=== PATIENT | female | born 1940 | race Caucasian/White ===

== ENCOUNTER → 2018-12-09 | Outpatient (CLI) | payer MEDICARE ==
--- NOTE | 2018-12-10 12:01 | P.ARTDOP ---
Arterial Doppler LOWER EXTREMITY ARTERIAL DOPPLER: DATE OF SERVICE: 12/09/2018 Reason for study: Left ankle ulcer. Doppler waveforms: Multiphasic at both femoral and popliteals and atypical below. Pulse volume recording: []. Pressure gradients: Above the ankles bilaterally. Ankle-brachial indices: 0.71 on the right endpoints 87 on the left. 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 Perfusion probably adequate for healing given toe waveforms and pressures. Clinical correlation recommended..
== END | disposition home or self-care (01) ==
LOC: RADUSWWP 14:00
PROVIDERS: ATTEND Internal Medicine Infectious Disease
DX: M79.604 Pain in right leg (principal); M79.605 Pain in left leg; E63.8 Other specified nutritional deficiencies
CPT/HCPCS: 93923

== ENCOUNTER → 2018-12-11 | Outpatient (CLI) | payer MEDICARE ==
--- NOTE | 2018-12-11 14:40 | US ---
LOWER EXTREMITY VENOUS INSUFFICIENCY [facility]ound Center pt with non-healing wound left lower leg x 3 months SIDE PERFORMED: Bilateral 1) Color flow is present and patency is documented in the following vessels. No DVT or SVT is noted . EIV Common Femoral Vein Deep Femoral Vein Femoral Vein Popliteal Vein Proximal Calf Veins Greater Saph Vein Upper Small Saph Vein 2) There is venous reflux noted at the following venous levels: No reflux visualized
== END | disposition home or self-care (01) ==
LOC: RADUSWWP 13:53
PROVIDERS: ATTEND Internal Medicine Infectious Disease
DX: M79.604 Pain in right leg (principal); M79.605 Pain in left leg
CPT/HCPCS: 93970

== ENCOUNTER 2019-11-08 21:11 | Inpatient (IN) | payer MEDICARE ==
[2019-11-08] MEDS ORDERED: SODIUM CHLORIDE 0.9% 500 ML 500 ML IV ONE (21:21)
[2019-11-08] MEDS ORDERED: SODIUM CHLORIDE 0.9% 1,000 ML IV ONE ×2 (21:21→23:23)
--- NOTE | 2019-11-08 21:55 | ED ---
General Adult HPI - General Chief complaint: Recheck/Abnormal Lab/Rx Stated complaint: Poss STEMI Time Seen by Provider: 11/08/19 21:13 Source: EMS Mode of arrival: EMS Limitations: altered mental status, physical limitation - History of Present Illness Initial comments: This patient is a 79-year-old woman brought from her home by ambulance. Most of the history comes from the EMS personnel as patient does appear to have some underlying dementia and some possible delirium as well. EMS was called as the patient reportedly was weak and not getting out of bed for about the past 7 days or so. Over about the past day or so the patient also has not been very responsive at home to family members and they called ambulance. EMS personnel report that they found patient in bed which was soiled with urine and stool. Patient is only able to give 1 or 2 word answers. She is able states she is in the hospital. She is denying pain anywhere. She is denying dyspnea. Onset/Timin -: week(s) Severity scale (1-10): 0 Improves with: none Worsens with: none Associated Symptoms: denies other symptoms - Related Data Home Medications Medication Instructions Recorded Confirmed Albuterol Inhaler [Ventolin Hfa 1 - 2 puff INHALATION RT-Q6H PRN 12/02/18 11/09/19 Inhaler] Ascorbic Acid [Vitamin C] 250 mg PO BID 12/02/18 11/09/19 Aspirin 325 mg PO DAILY 12/02/18 11/09/19 Carvedilol [Coreg] 12.5 mg PO BID 12/02/18 11/09/19 Cholecalciferol [Vitamin D3] 1,000 unit PO DAILY 12/02/18 11/09/19 Ferrous Sulfate [Feosol] 325 mg PO BID 12/02/18 11/09/19 Furosemide [Lasix] 20 mg PO DAILY 12/02/18 11/09/19 Lisinopril [Prinivil] 20 mg PO BID 12/02/18 11/09/19 Multivitamins, Thera [Multivitamin 1 tab PO DAILY 12/02/18 11/09/19 (formulary)] Simvastatin [Zocor] 40 mg PO HS 12/02/18 11/09/19 Clopidogrel [Plavix] 75 mg PO DAILY 11/09/19 11/09/19 HYDROcodone/APAP 5-325MG [[place] 5 - 500 mg PO Q6HR PRN 11/09/19 11/09/19 5-325] Ibuprofen [Motrin] 600 mg PO Q6HR PRN 11/09/19 11/09/19 Allergies Allergy/AdvReac Type Severity Reaction Status Date / Time No Known Allergies Allergy Verified 12/02/18 13:08 Review of Systems ROS Statement: Those systems with pertinent positive or pertinent negative responses have been documented in the HPI. ROS Other: All systems not noted in ROS Statement are negative. Limitations: ROS unobtainable due to patients medical condition Cardiovascular: Denies: chest pain Gastrointestinal: Denies: abdominal pain Neurological: Denies: headache Past Medical History Past Medical History: Hyperlipidemia, Hypertension, Myocardial Infarction ([place]), Pneumonia Last Myocardial Infarction Date:: 02/25/2012 History of Any Multi-Drug Resistant Organisms: None Reported Past Surgical History: Heart Catheterization With Stent, Tubal Ligation Past Anesthesia/Blood Transfusion Reactions: No Reported Reaction Date of Last Stent Placement:: 02/2012 Past Psychological History: No Psychological Hx Reported Smoking Status: Former smoker - Past Family History Mother Family Medical History: Cancer, Hypertension, Thyroid Disorder Son(s) Family Medical History: Cancer General Exam Limitations: language barrier, altered mental status, physical limitation General appearance: obtunded Head exam: Present: atraumatic, normocephalic Eye exam: Present: PERRL. Absent: scleral icterus, conjunctival injection ENT exam: Present: mucous membranes dry Neck exam: Present: full ROM. Absent: tenderness, meningismus Respiratory exam: Present: rhonchi. Absent: respiratory distress, wheezes, rales Cardiovascular Exam: Present: regular rate, normal rhythm, normal heart sounds. Absent: systolic murmur, diastolic murmur, rubs, gallop GI/Abdominal exam: Present: soft. Absent: distended, tenderness, guarding, rebound Extremities exam: Present: pedal edema. Absent: normal capillary refill (Delayed refill), calf tenderness Back exam: Absent: tenderness, CVA tenderness (R), CVA tenderness (L) Neurological exam: Present: altered, CN II-XII intact. Absent: oriented X3 (Patient oriented to person and recognizes she is in the hospital could not state the date.), motor sensory deficit Skin exam: Present: dry, mottled, other (Patient has multiple excoriations to the buttocks bilaterally.) Course Vital Signs 11/08/19 11/08/19 11/08/19 21:14 22:00 22:19 Temperature 97.3 F L Pulse Rate 97 88 86 Pulse Rate [ Pulse Oximetery ] Respiratory 14 16 14 Rate Blood Pressure 122/64 88/66 108/85 Blood Pressure [Left Arm] O2 Sat by Pulse 91 L Oximetry 11/08/19 11/08/19 11/09/19 23:00 23:35 00:09 Temperature 97.4 F L Pulse Rate 84 90 86 Pulse Rate [ Pulse Oximetery ] Respiratory 14 14 15 Rate Blood Pressure 88/58 105/82 101/81 Blood Pressure [Left Arm] O2 Sat by Pulse 96 Oximetry 11/09/19 11/09/19 11/09/19 00:50 01:04 01:30 Temperature Pulse Rate 138 H 76 78 Pulse Rate [ Pulse Oximetery ] Respiratory 14 15 14 Rate Blood Pressure 122/57 103/53 90/79 Blood Pressure [Left Arm] O2 Sat by Pulse 95 94 L Oximetry 11/09/19 11/09/19 11/09/19 01:37 02:00 04:00 Temperature 97.2 F L 97.4 F L 97.3 F L Pulse Rate 79 Pulse Rate [ 70 71 Pulse Oximetery ] Respiratory 14 18 18 Rate Blood Pressure Blood Pressure 103/48 111/71 [Left Arm] O2 Sat by Pulse 93 L 96 95 Oximetry - Reevaluation(s) Reevaluation #1: 11/08/19 23:03 Patient's son arrived at the bedside as I was starting external jugular IV line. We discussed discussed the patient's case and he stated that she had expressed wishes to not have resuscitation or mechanical life support. EKG Findings - EKG Comments: EKG Findings:: Possible old lateral infarct. Possible old inferior infarct - EKG Results: EKG: interpreted by ERMD, sinus rhythm (Rate 85 bpm) - Blocks, [place], Hypertrophy, ST Abn: QRS axis and voltage: left axis deviation (-30 to -90) Medical Decision Making - Medical Decision Making Patient 79-year-old woman brought by ambulance after she became less and less responsive over the past 24 hours. Prior to that she had spent the past week for the most part lying in bed. The workup does reveal elevated troponin, and case discussed with cardiology. Given that the patient is denying chest pain and dyspnea, patient not currently indicated for [employer]. Patient initially was to be heparinized then found to have occult positive stools. Patient is also hypercalcemic and this may be due to the suspected left upper lung mass observed on chest x-ray. Fluid hydration and antibiotics started. Patient family states she would wish t o be no CODE STATUS. - Lab Data Result diagrams: 11/08/19 22:20 11/08/19 22:20 Lab Results 11/08/19 11/08/19 11/08/19 Range/Units 21:00 21:00 22:20 WBC 12.5 H (3.8-10.6) k/uL RBC 5.83 H (3.80-5.40) m/uL Hgb 16.5 H (11.4-16.0) gm/dL Hct 51.2 H (34.0-46.0) % MCV 87.8 (80.0-100.0) fL MCH 28.4 (25.0-35.0) pg MCHC 32.3 (31.0-37.0) g/dL RDW 14.8 (11.5-15.5) % Plt Count 105 L (150-450) k/uL Neutrophils % 90 % Lymphocytes % 6 % Monocytes % 3 % Eosinophils % 0 % Basophils % 0 % Neutrophils # 11.3 H (1.3-7.7) k/uL Lymphocytes # 0.7 L (1.0-4.8) k/uL Monocytes # 0.4 (0-1.0) k/uL Eosinophils # 0.0 (0-0.7) k/uL Basophils # 0.0 (0-0.2) k/uL PT (9.0-12.0) sec INR (<1.2) APTT (22.0-30.0) sec Sodium (137-145) mmol/L Potassium (3.5-5.1) mmol/L Chloride (98-107) mmol/L Carbon Dioxide (22-30) mmol/L Anion Gap mmol/L BUN (7-17) mg/dL Creatinine (0.52-1.04) mg/dL Est GFR (CKD-EPI)AfAm (>60 ml/min/1.73 sqM) Est GFR (CKD-EPI)NonAf (>60 ml/min/1.73 sqM) Glucose (74-99) mg/dL Lactic Ac Sepsis Rflx Plasma Lactic Acid Emilio (0.7-2.0) mmol/L Calcium (8.4-10.2) mg/dL Total Bilirubin (0.2-1.3) mg/dL AST (14-36) U/L ALT (4-34) U/L Alkaline Phosphatase (38-126) U/L CK-MB (CK-2) (0.0-2.4) ng/mL Troponin I (0.000-0.034) ng/mL Total Protein (6.3-8.2) g/dL Albumin (3.5-5.0) g/dL Urine Color [place] Urine Appearance Cloudy H (Clear) Urine pH 5.0 (5.0-8.0) Ur Specific Wilson 1.018 (1.001-1.035) Urine Protein 1+ H (Negative) Urine Glucose (UA) Negative (Negative) Urine Ketones Negative (Negative) Urine Blood Trace H (Negative) Urine Nitrite Negative (Negative) Urine Bilirubin 1+ H (Negative) Urine Urobilinogen 4.0 (<2.0) mg/dL Ur Leukocyte Esterase Moderate H (Negative) Urine RBC 1 (0-5) /hpf Urine WBC 8 H (0-5) /hpf Ur Squamous Epith Cells 1 (0-4) /hpf Urine Bacteria Many H (None) /hpf Hyaline Casts 62 H (0-2) /lpf Urine Mucus Many H (None) /hpf Stool Occult Blood Positive H (Negative) 11/08/19 11/08/19 11/08/19 Range/Units 22:20 22:20 22:20 WBC (3.8-10.6) k/uL RBC (3.80-5.40) m/uL Hgb (11.4-16.0) gm/dL Hct (34.0-46.0) % MCV (80.0-100.0) fL MCH (25.0-35.0) pg MCHC (31.0-37.0) g/dL RDW (11.5-15.5) % Plt Count (150-450) k/uL Neutrophils % % Lymphocytes % % Monocytes % % Eosinophils % % Basophils % % Neutrophils # (1.3-7.7) k/uL Lymphocytes # (1.0-4.8) k/uL Monocytes # (0-1.0) k/uL Eosinophils # (0-0.7) k/uL Basophils # (0-0.2) k/uL PT 10.9 (9.0-12.0) sec INR 1.1 (<1.2) APTT 26.3 (22.0-30.0) sec Sodium 139 (137-145) mmol/L Potassium 4.1 (3.5-5.1) mmol/L Chloride 109 H (98-107) mmol/L Carbon Dioxide 16 L (22-30) mmol/L Anion Gap 14 mmol/L BUN 85 H (7-17) mg/dL Creatinine 2.99 H (0.52-1.04) mg/dL Est GFR (CKD-EPI)AfAm 16 (>60 ml/min/1.73 sqM) Est GFR (CKD-EPI)NonAf 14 (>60 ml/min/1.73 sqM) Glucose 119 H (74-99) mg/dL Lactic Ac Sepsis Rflx Plasma Lactic Acid Emilio (0.7-2.0) mmol/L Calcium 13.4 H* (8.4-10.2) mg/dL Total Bilirubin 2.5 H (0.2-1.3) mg/dL AST 36 (14-36) U/L ALT 13 (4-34) U/L Alkaline Phosphatase 69 (38-126) U/L CK-MB (CK-2) 5.9 H (0.0-2.4) ng/mL Troponin I 1.630 H* (0.000-0.034) ng/mL Total Protein 6.0 L (6.3-8.2) g/dL Albumin 2.7 L (3.5-5.0) g/dL Urine Color Urine Appearance (Clear) Urine pH (5.0-8.0) Ur Specific Wilson (1.001-1.035) Urine Protein (Negative) Urine Glucose (UA) (Negative) Urine Ketones (Negative) Urine Blood (Negative) Urine Nitrite (Negative) Urine Bilirubin (Negative) Urine Urobilinogen (<2.0) mg/dL Ur Leukocyte Esterase (Negative) Urine RBC (0-5) /hpf Urine WBC (0-5) /hpf Ur Squamous Epith Cells (0-4) /hpf Urine Bacteria (None) /hpf Hyaline Casts (0-2) /lpf Urine Mucus (None) /hpf Stool Occult Blood (Negative) 11/08/19 11/08/19 Range/Units 22:20 23:19 WBC (3.8-10.6) k/uL RBC (3.80-5.40) m/uL Hgb (11.4-16.0) gm/dL Hct (34.0-46.0) % MCV (80.0-100.0) fL MCH (25.0-35.0) pg MCHC (31.0-37.0) g/dL RDW (11.5-15.5) % Plt Count (150-450) k/uL Neutrophils % % Lymphocytes % % Monocytes % % Eosinophils % % Basophils % % Neutrophils # (1.3-7.7) k/uL Lymphocytes # (1.0-4.8) k/uL Monocytes # (0-1.0) k/uL Eosinophils # (0-0.7) k/uL Basophils # (0-0.2) k/uL PT (9.0-12.0) sec INR (<1.2) APTT (22.0-30.0) sec Sodium (137-145) mmol/L Potassium (3.5-5.1) mmol/L Chloride (98-107) mmol/L Carbon Dioxide (22-30) mmol/L Anion Gap mmol/L BUN (7-17) mg/dL Creatinine (0.52-1.04) mg/dL Est GFR (CKD-EPI)AfAm (>60 ml/min/1.73 sqM) Est GFR (CKD-EPI)NonAf (>60 ml/min/1.73 sqM) Glucose (74-99) mg/dL Lactic Ac Sepsis Rflx Y Plasma Lactic Acid Emilio 3.9 H* (0.7-2.0) mmol/L Calcium (8.4-10.2) mg/dL Total Bilirubin (0.2-1.3) mg/dL AST (14-36) U/L ALT (4-34) U/L Alkaline Phosphatase (38-126) U/L CK-MB (CK-2) (0.0-2.4) ng/mL Troponin I (0.000-0.034) ng/mL Total Protein (6.3-8.2) g/dL Albumin (3.5-5.0) g/dL Urine Color Urine Appearance (Clear) Urine pH (5.0-8.0) Ur Specific Wilson (1.001-1.035) Urine Protein (Negative) Urine Glucose (UA) (Negative) Urine Ketones (Negative) Urine Blood (Negative) Urine Nitrite (Negative) Urine Bilirubin (Negative) Urine Urobilinogen (<2.0) mg/dL Ur Leukocyte Esterase (Negative) Urine RBC (0-5) /hpf Urine WBC (0-5) /hpf Ur Squamous Epith Cells (0-4) /hpf Urine Bacteria (None) /hpf Hyaline Casts (0-2) /lpf Urine Mucus (None) /hpf Stool Occult Blood (Negative) Disposition
[2019-11-08 22:19] LABS: Appearance,Urine Cloudy (Clear); Bacteria,Urine Many /hpf; Bilirubin,Urine 1+ (Negative); Blood,Urine Trace (Negative); Color,Urine Orange; Glucose,Urine (UA) Negative (Negative); Hyaline Casts,Urine 62 /lpf (0-2); Ketones,Urine Negative (Negative); Leukocyte Esterase,Urine Moderate (Negative); Mucus,Urine Many /hpf; Nitrite,Urine Negative (Negative); Protein,Urine 1+ (Negative); RBC,Urine 1 /hpf (0-5); Specific Gravity,Urine 1.018 (1.001-1.035); Squamous Epithelial Cell,Urine 1 /hpf (0-4); WBC,Urine 8 /hpf (0-5)
[2019-11-08 22:35] LABS: Basophils % (A) 0 %; Eosinophils % (A) 0 %; HCT 51.2 % (34.0-46.0); HGB 16.5 gm/dL (11.4-16.0); Lymphocytes # (A) 0.7 k/uL (1.0-4.8); Lymphocytes % (A) 6 %; MCH 28.4 pg (25.0-35.0); MCHC 32.3 g/dL (31.0-37.0); MCV 87.8 fL (80.0-100.0); Mean Platelet Volume 9.2; Monocytes # (A) 0.4 k/uL (0-1.0); Monocytes % (A) 3 %; Neutrophils # (A) 11.3 k/uL (1.3-7.7); Neutrophils % (A) 90 %; Platelet Count 105 k/uL (150-450); RBC 5.83 m/uL (3.80-5.40); RDW 14.8 % (11.5-15.5); WBC 12.5 k/uL (3.8-10.6)
[2019-11-08 22:44] LABS: INR 1.1 (<1.2); Partial Thromboplastin Time 26.3 sec (22.0-30.0); Prothrombin Time 10.9 sec (9.0-12.0)
[2019-11-08 23:01] LABS: Albumin 2.7 g/dL (3.5-5.0); Potassium 4.1 mmol/L (3.5-5.1); Total Bilirubin 2.5 mg/dL (0.2-1.3)
[2019-11-08 23:13] LABS: Creatine Kinase MB 5.9 ng/mL (0.0-2.4)
[2019-11-08 23:20] LABS: Calcium 13.4 mg/dL (8.4-10.2); Troponin I 1.63 ng/mL (0.000-0.034)
--- NOTE | 2019-11-09 00:35 | CT ---
EXAMINATION TYPE: CT brain wo con DATE OF EXAM: 11/09/2019 COMPARISON: None HISTORY: Patient presents with AMS. CT DLP: 1158.4 mGycm Automated exposure control for dose reduction was used. There is cerebral cortical atrophy. There is no mass effect nor midline shift. There is no sign of in tracranial hemorrhage. There is large white matter area of hypodensity left parietal lobe that measur es 6 x 4 cm. There is no effacement of the ventricle. The calvarium is intact. IMPRESSION: Cerebral atrophy. Large parietal white matter hypodense area more likely related to ischemia in view of the lack of any mass effect. 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 No underlying mass identified.
--- NOTE | 2019-11-09 00:47 | XR ---
EXAMINATION TYPE: XR chest 1V portable DATE OF EXAM: 11/09/2019 COMPARISON: 06/26/2012 HISTORY: Back pain TECHNIQUE: 2 views supine FINDINGS: There is extensive masslike consolidation in the left upper lobe. Heart size is normal. The re is no heart failure. There is large calcified granuloma in the left upper lobe and measures 1.3 cm . The lung bases are fairly clear. Bony thorax appears intact. IMPRESSION: Limited exam shows masslike consolidation left upper lobe. Follow-up recommended. Tumor i s possible. Density is new compared to old chest x-ray.
[2019-11-09] MEDS ORDERED: DILTIAZEM DRIP BOLUS FROM BAG 1 MG SOLN IV ONE (00:56)
[2019-11-09] MEDS ORDERED: HEPARIN SODIUM,PORCINE 5,000 UNIT/ML 1 ML VIAL IV PRN (00:56)
[2019-11-09] MEDS ORDERED: HEPARIN SODIUM,PORCINE 5,000 UNIT/ML 1 ML VIAL IV ONE (00:56)
[2019-11-09] MEDS ORDERED: ACETAMINOPHEN TAB 325 MG TAB PO PRN (00:57)
[2019-11-09] MEDS ORDERED: NALOXONE 0.4 MG/ML 1 ML VIAL IV PRN (00:57)
[2019-11-09] MEDS: HEPARIN SOD,PORK IN 0.45% NACL 25,000 UNIT in 0.45% NACL 1 250ML.BAG IV SCH ×2 (01:34→23:51)
[2019-11-09] MEDS: SODIUM CHLORIDE 0.9% 1,000 ML IV SCH ×3 (01:41→20:53)
[2019-11-09] MEDS: DILTIAZEM 125 MG in SODIUM CHLORIDE 0.9% 100 ML IV SCH ×2 (02:18→23:51)
--- NOTE | 2019-11-09 08:42 | P.CRDCN ---
History of Present Illness Consult date: 11/09/19 Requesting physician: Purvi Rausch Reason for Consult (text): Abnormal troponins Chief complaint: Weakness History of present illness: This is a 79-year-old female, history was obtained from the medical record as the patient was quite confused. She does have a history of underlying dementia and possible delirium according to the medical records. History also of hyperlipidemia, hypertension. Apparently EMS was called, patient was quite weak and had not gotten out of bed for the past 7 days or so, and was somewhat unresponsive. Patient was found in the bed which was soiled with urine and stool. The reason a cardiology consultation was requested was because of abnormality in troponin. Chest x-ray on arrival here showed a masslike consolidation in the left upper lobe, follow-up recommended. Her EKG on presentation here showed a normal sinus rhythm, right bundle branch block pattern, with nonspecific ST-T wave changes. Blood pressure 105/80 with a heart rate of 90, afebrile, 91% on room air. White blood cell count 12.5, hemoglobin 16.5, platelet count 105. Sodium 139, potassium 4.1, BUN 85, creatinine 2.9. Plasma lactic acid up to 5.1. Total bilirubin 2.5. Troponin 1.6, 1.5. Positive UTI, positive stool for occult blood. At the time of my examination this morning, patient is lying in bed, intermittently will answer with one-word. Quite unkempt,frail. Past Medical History Past Medical History: Hyperlipidemia, Hypertension, Myocardial Infarction ([place]), Pneumonia Last Myocardial Infarction Date:: 02/25/2012 History of Any Multi-Drug Resistant Organisms: None Reported Past Surgical History: Heart Catheterization With Stent, Tubal Ligation Past Anesthesia/Blood Transfusion Reactions: No Reported Reaction Date of Last Stent Placement:: 02/2012 Past Psychological History: No Psychological Hx Reported Smoking Status: Former smoker - Past Family History Mother Family Medical History: Cancer, Hypertension, Thyroid Disorder Son(s) Family Medical History: Cancer Medications and Allergies Home Medications Medication Instructions Recorded Confirmed Type Albuterol Inhaler [Ventolin Hfa 1 - 2 puff INHALATION RT-Q6H PRN 12/02/18 11/09/19 History Inhaler] Ascorbic Acid [Vitamin C] 250 mg PO BID 12/02/18 11/09/19 History Aspirin 325 mg PO DAILY 12/02/18 11/09/19 History Carvedilol [Coreg] 12.5 mg PO BID 12/02/18 11/09/19 History Cholecalciferol [Vitamin D3] 1,000 unit PO DAILY 12/02/18 11/09/19 History Ferrous Sulfate [Feosol] 325 mg PO BID 12/02/18 11/09/19 History Furosemide [Lasix] 20 mg PO DAILY 12/02/18 11/09/19 History Lisinopril [Prinivil] 20 mg PO BID 12/02/18 11/09/19 History Multivitamins, Thera [Multivitamin 1 tab PO DAILY 12/02/18 11/09/19 History (formulary)] Simvastatin [Zocor] 40 mg PO HS 12/02/18 11/09/19 History Clopidogrel [Plavix] 75 mg PO DAILY 11/09/19 11/09/19 History HYDROcodone/APAP 5-325MG [[place] 5 - 500 mg PO Q6HR PRN 11/09/19 11/09/19 History 5-325] Ibuprofen [Motrin] 600 mg PO Q6HR PRN 11/09/19 11/09/19 History Allergies Allergy/AdvReac Type Severity Reaction Status Date / Time No Known Allergies Allergy Verified 12/02/18 13:08 Physical Exam Vitals: Vital Signs Temp Pulse Pulse Resp BP BP Pulse Ox 11/09/19 04:00 97.3 F L 71 18 111/71 95 11/09/19 02:00 97.4 F L 70 18 103/48 96 11/09/19 01:37 97.2 F L 79 14 93 L 11/09/19 01:30 78 14 90/79 11/09/19 01:04 76 15 103/53 94 L 11/09/19 00:50 138 H 14 122/57 95 11/09/19 00:09 97.4 F L 86 15 101/81 96 11/08/19 23:35 90 14 105/82 11/08/19 23:00 84 14 88/58 11/08/19 22:19 86 14 108/85 11/08/19 22:00 88 16 88/66 11/08/19 21:14 97.3 F L 97 14 122/64 91 L Intake and Output 11/08/19 11/09/19 11/09/19 22:59 06:59 14:59 Intake Total 800 Output Total 125 50 Balance -125 750 Intake: Intake, IV Titration 800 Amount Sodium Chloride 0.9% 1, 800 000 ml @ 100 mls/hr IV . Q10H [facility] Rx#:[id number] Output: Urine 125 50 Uretheral ([place]) 125 Other: Voiding Method Indwelling Catheter Weight 55.338 kg 56.5 kg PHYSICAL EXAMINATION: GENERAL: 79-year-old frail, unkempt female, in no acute distress at the time of my examination HEENT: Head is atraumatic, normocephalic. Pupils equal, round. Sclera anicteric. Conjunctiva are clear. Mucous membranes of the mouth are moist. Neck is supple. There is no elevated jugular venous pressure. No carotid bru it is heard. HEART EXAMINATION: Heart S1 S2 1 systolic murmur is heard CHEST EXAMINATION: Lungs reveal scattered rhonchi throughout ABDOMEN: Soft, nontender. Bowel sounds are heard. No organomegaly noted. EXTREMITIES:[ 1+ peripheral pulses to the lower extremities, several ecchymotic areas noted, chronic venous stasis NEUROLOGIC patient is sleeping, arousable, mostly unresponsive, will answer with one-word responses . . Results 11/08/19 22:20 11/08/19 22:20 Cardiac Enzymes 11/08/19 11/08/19 11/09/19 Range/Units 22:20 22:20 03:10 AST 36 (14-36) U/L CK-MB (CK-2) 5.9 H (0.0-2.4) ng/mL Troponin I 1.630 H* 1.570 H* (0.000-0.034) ng/mL Coagulation 11/08/19 Range/Units 22:20 PT 10.9 (9.0-12.0) sec APTT 26.3 (22.0-30.0) sec CBC 11/08/19 Range/Units 22:20 WBC 12.5 H (3.8-10.6) k/uL RBC 5.83 H (3.80-5.40) m/uL Hgb 16.5 H (11.4-16.0) gm/dL Hct 51.2 H (34.0-46.0) % Plt Count 105 L (150-450) k/uL Comprehensive Metabolic Panel 11/08/19 Range/Units 22:20 Sodium 139 (137-145) mmol/L Potassium 4.1 (3.5-5.1) mmol/L Chloride 109 H (98-107) mmol/L Carbon Dioxide 16 L (22-30) mmol/L BUN 85 H (7-17) mg/dL Creatinine 2.99 H (0.52-1.04) mg/dL Glucose 119 H (74-99) mg/dL Calcium 13.4 H* (8.4-10.2) mg/dL AST 36 (14-36) U/L ALT 13 (4-34) U/L Alkaline Phosphatase 69 (38-126) U/L Total Protein 6.0 L (6.3-8.2) g/dL Albumin 2.7 L (3.5-5.0) g/dL Current Medications Generic Name Dose Route Start Last Admin Trade Name Freq PRN Reason Stop Dose Admin Acetaminophen 650 mg 11/09/19 00:57 Tylenol Tab PO Q6HR PRN Mild Pain or Fever > 100.5 Heparin Sodium (Porcine) 0 unit 11/09/19 00:56 Heparin IV PER PROTOCOL PRN Low PTT Protocol Diltiazem HCl 125 mg/ Sodium 125 mls @ 5 mls/hr 11/09/19 01:00 11/09/19 02:18 Chloride IV Not Given .Q24H NELDA 5 MG/HR Heparin Sodium/Sodium Chloride 250 mls @ 6.641 mls/hr 11/09/19 01:00 11/09/19 01:34 25,000 unit/ Sodium Chloride IV Not Given .Q24H NELDA Protocol 12 UNITS/KG/HR Sodium Chloride 1,000 mls @ 100 mls/hr 11/09/19 01:00 11/09/19 01:41 Saline 0.9% IV 100 mls/hr .Q10H NELDA Administration Naloxone HCl 0.2 mg 11/09/19 00:57 Narcan IV Q2M PRN Opioid Reversal Intake and Output 11/08/19 11/09/19 11/09/19 22:59 06:59 14:59 Intake Total 800 Output Total 125 50 Balance -125 750 Intake: Intake, IV Titration 800 Amount Sodium Chloride 0.9% 1, 800 000 ml @ 100 mls/hr IV . Q10H [facility] Rx#:[id number] Output: Urine 125 50 Uretheral ([place]man) 125 Other: Voiding Method Indwelling Catheter Weight 55.338 kg 56.5 kg 11/08/19 22:20 11/08/19 22:20 EKG Interpretations (text) EKG shows a normal sinus rhythm, sinus tachycardia with right bundle branch block pattern, nonspecific ST-T wave changes Assessment and Plan Plan: Assessment and plan #1 weakness, unresponsiveness. #2 elevated lactic acid #3 heme-positive stool #4 abnormality in troponin, could represent an acute coronary event. #5 hypertension #6 hyperlipidemia #7 dementia #8 renal failure, likely secondary to dehydration #9 UTI Plan We will obtain an echocardiogram with Doppler study. Initiate baby aspirin, reinitiate statin. Continue supportive care. Patient is currently a no CODE STATUS, and is going to be made with the family regarding hospice care. DNP note has been reviewed, I agree with a documented findings and plan of care. Patient was seen and examined.
--- NOTE | 2019-11-09 11:47 | ECHOF ---
Referral Reason:elevated trop MEASUREMENTS -------- HEIGHT: 165.1 cm WEIGHT: 56.2 kg BP: 111/71 RVIDd: 2.7 cm (< 3.3) IVSd: 1.4 cm (0.6 - 1.1) LVIDd: 3.4 cm (3.9 - 5.3) LVPWd: 1.3 cm (0.6 - 1.1) IVSs: 1.6 cm LVIDs: 2.2 cm LVPWs: 1.4 cm LA Diam: 3.0 cm (2.7 - 3.8) Ao Diam: 3.2 cm (2.0 - 3.7) AV Cusp: 1.7 cm (1.5 - 2.6) MV EXCURSION: 13.536 mm (> 18.000) MV EF SLOPE: 34 mm/s (70 - 150) EPSS: 0.5 cm MV E Abel: 0.62 m/s MV DecT: 345 ms MV A Abel: 1.00 m/s MV E/A Ratio: 0.62 AR PHT: 654 ms RAP: 5.00 mmHg RVSP: 36.33 mmHg FINDINGS -------- Sinus rhythm. This was a technically good study. The left ventricular size is normal. There is moderate concentric left ventricular hypertrophy. L eft ventricular systolic function is hyperdynamic with an estimated EF of >70%. The right ventricle is normal in size. The left atrial size is normal. The right atrium is normal in size. Interatrial and interventricular septum intact. There is mild aortic valve sclerosis. There is mild aortic regurgitation. The mitral valve leaflets are mildly thickened. Mild mitral annular calcification present. Mild tricuspid regurgitation present. There is mild pulmonary hypertension. The right ventricular systolic pressure, as measured by Doppler, is 36.33mmHg. There is no pulmonic regurgitation present. The aortic root size is normal. Normal inferior vena cava with normal inspiratory collapse consistent with estimated right atrial pre ssure of 5 mmHg. There is no pericardial effusion. CONCLUSIONS -------- 1. Sinus rhythm. 2. This was a technically good study. 3. The left ventricular size is normal. 4. There is moderate concentric left ventricular hypertrophy. 5. Left ventricular systolic function is hyperdynamic with an estimated EF of >70%. 6. The right ventricle is normal in size. 7. The left atrial size is normal. 8. The right atrium is normal in size. 9. Interatrial and interventricular septum intact. 10. There is mild aortic valve sclerosis. 11. There is mild aortic regurgitation. 12. The mitral valve leaflets are mildly thickened. 13. Mild mitral annular calcification present. 14. Mild tricuspid regurgitation present. 15. There is mild pulmonary hypertension. 16. The right ventricular systolic pressure, as measured by Doppler, is 36.33mmHg. 17. There is no pulmonic regurgitation present. 18. The aortic root size is normal. 19. Normal inferior vena cava with normal inspiratory collapse consistent with estimated right atrial pressure of 5 mmHg. 20. There is no pericardial effusion. PAD EXTRACTOR TENDER: Bouchra Rowley RDCS
[2019-11-09] MEDS ORDERED: IPRATROPIUM-ALBUTEROL 3 ML NEB INHALATION PRN (13:20)
--- NOTE | 2019-11-09 15:36 | P.HPIM ---
History of Present Illness This is a pleasant 79 years old female with past medical history of hyperlipidemia, hypertension, coronary artery disease status post stent placement . Patient is poor historian and could not provide information which were obtained from the records and staff, as per records Through EMS patient was weak and not getting out of bed for about 7 days and she has been poorly RESPONSIVE AT HOME HAS [facility] CALLED AMBULANCE. Patient was found salt in her urine and a stool, as per record she able to provide one or 2 word answers She needs Vitals are stable and patient is afebrile. Labs showed leukocytosis of 12.5k, hemoglobin 16.5, INR is 1.1, creatinine is elevated at 2.9, baseline is 2.3, calcium is elevated at 13.4, sodium and potassium are within normal limits, lactic acid is elevated at 3.9 and 5.1, liver enzymes AST and ALT are within normal limits, troponin is elevated at 1.6 and 1.5, TSH is within normal limits. Echocardiogram showing normal size of LV, moderate LVH, ejection fraction more than 70% Tare Weigher evaluated the patient already on come and recommended history start aspirin and statin with consideration of hospice care patient already started on ceftriaxone and heparin drip and normal/500 mL per hour Review of Systems n/a Past Medical History Past Medical History: Hyperlipidemia, Hypertension, Myocardial Infarction ([place]), Pneumonia Last Myocardial Infarction Date:: 02/25/2012 History of Any Multi-Drug Resistant Organisms: None Reported Past Surgical History: Heart Catheterization With Stent, Tubal Ligation Past Anesthesia/Blood Transfusion Reactions: No Reported Reaction Date of Last Stent Placement:: 02/2012 Past Psychological History: No Psychological Hx Reported Smoking Status: Former smoker - Past Family History Mother Family Medical History: Cancer, Hypertension, Thyroid Disorder Son(s) Family Medical History: Cancer Medications and Allergies Home Medications Medication Instructions Recorded Confirmed Type Albuterol Inhaler [Ventolin Hfa 2 puff INHALATION RT-Q4H PRN 12/02/18 11/09/19 History Inhaler] Ascorbic Acid [Vitamin C] 250 mg PO BID 12/02/18 11/09/19 History Aspirin 325 mg PO DAILY 12/02/18 11/09/19 History Carvedilol [Coreg] 12.5 mg PO BID 12/02/18 11/09/19 History Cholecalciferol [Vitamin D3] 1,000 unit PO DAILY 12/02/18 11/09/19 History Ferrous Sulfate [Feosol] 325 mg PO BID 12/02/18 11/09/19 History Furosemide [Lasix] 20 mg PO DAILY 12/02/18 11/09/19 History Lisinopril [Prinivil] 20 mg PO BID 12/02/18 11/09/19 History Multivitamins, Thera [Multivitamin 1 tab PO DAILY 12/02/18 11/09/19 History (formulary)] Simvastatin [Zocor] 40 mg PO HS 11/09/19 11/09/19 History Allergies Allergy/AdvReac Type Severity Reaction Status Date / Time No Known Allergies Allergy Verified 11/09/19 10:04 Physical Exam Vitals: Vital Signs Temp Pulse Pulse Resp BP BP Pulse Ox 11/09/19 04:00 97.3 F L 71 18 111/71 95 11/09/19 02:00 97.4 F L 70 18 103/48 96 11/09/19 01:37 97.2 F L 79 14 93 L 11/09/19 01:30 78 14 90/79 11/09/19 01:04 76 15 103/53 94 L 11/09/19 00:50 138 H 14 122/57 95 11/09/19 00:09 97.4 F L 86 15 101/81 96 11/08/19 23:35 90 14 105/82 11/08/19 23:00 84 14 88/58 11/08/19 22:19 86 14 108/85 11/08/19 22:00 88 16 88/66 11/08/19 21:14 97.3 F L 97 14 122/64 91 L Intake and Output 11/08/19 11/09/19 11/09/19 22:59 06:59 14:59 Intake Total 800 0 Output Total 125 50 Balance -125 750 0 Intake: Intake, IV Titration 800 Amount Sodium Chloride 0.9% 1, 800 000 ml @ 100 mls/hr IV . Q10H [facility], [facility] Rx#:[id number] Oral 0 Output: Urine 125 50 Uretheral (Coleman) 125 Other: Voiding Method Indwelling Catheter # Voids 0 # Bowel Movements 1 Weight 55.338 kg 56.5 kg -GENERAL: The patient is confused and answers only 1-2 questions, not in any acute distress. Patient looks emaciated -HEENT: Pupils are round and equally reacting to light. EOMI. No scleral icterus. No conjunctival pallor. Normocephalic, atraumatic. No pharyngeal erythema. No thyromegaly. Dry mouth with ulceration CARDIOVASCULAR: S1 and S2 present. No murmurs, rubs, or gallops. PULMONARY: Chest is clear to auscultation, no wheezing or crackles. ABDOMEN: Soft, nontender, nondistended, normoactive bowel sounds. No palpable organomegaly. MUSCULOSKELETAL: No joint swelling or deformity. -EXTREMITIES: No cyanosis, clubbing, or pedal edema. Severely longer thickened toenails. Also patient has contracted upper extremity and also some degree of the lower extremity NEUROLOGICAL: Gross neurological examination did not reveal any focal deficits. -SKIN: No rashes. No petechiae, multiple pressure sores with excoriated skin in the lower back and rash Results CBC & Chem 7: 11/08/19 22:20 11/08/19 22:20 Labs: Abnormal Lab Results - Last 24 Hours (Table) 11/08/19 11/08/19 11/08/19 Range/Units 21:00 21:00 22:20 WBC 12.5 H (3.8-10.6) k/uL RBC 5.83 H (3.80-5.40) m/uL Hgb 16.5 H (11.4-16.0) gm/dL Hct 51.2 H (34.0-46.0) % Plt Count 105 L (150-450) k/uL Neutrophils # 11.3 H (1.3-7.7) k/uL Lymphocytes # 0.7 L (1.0-4.8) k/uL Chloride (98-107) mmol/L Carbon Dioxide (22-30) mmol/L BUN (7-17) mg/dL Creatinine (0.52-1.04) mg/dL Glucose (74-99) mg/dL Plasma Lactic Acid Emilio (0.7-2.0) mmol/L Calcium (8.4-10.2) mg/dL Total Bilirubin (0.2-1.3) mg/dL CK-MB (CK-2) (0.0-2.4) ng/mL Troponin I (0.000-0.034) ng/mL Total Protein (6.3-8.2) g/dL Albumin (3.5-5.0) g/dL Urine Appearance Cloudy H (Clear) Urine Protein 1+ H (Negative) Urine Blood Trace H (Negative) Urine Bilirubin 1+ H (Negative) Ur Leukocyte Esterase Moderate H (Negative) Urine WBC 8 H (0-5) /hpf Urine Bacteria Many H (None) /hpf Hyaline Casts 62 H (0-2) /lpf Urine Mucus Many H (None) /hpf Stool Occult Blood Positive H (Negative) 11/08/19 11/08/19 11/08/19 Range/Units 22:20 22:20 22:20 WBC (3.8-10.6) k/uL RBC (3.80-5.40) m/uL Hgb (11.4-16.0) gm/dL Hct (34.0-46.0) % Plt Count (150-450) k/uL Neutrophils # (1.3-7.7) k/uL Lymphocytes # (1.0-4.8) k/uL Chloride 109 H (98-107) mmol/L Carbon Dioxide 16 L (22-30) mmol/L BUN 85 H (7-17) mg/dL Creatinine 2.99 H (0.52-1.04) mg/dL Glucose 119 H (74-99) mg/dL Plasma Lactic Acid Emilio 3.9 H* (0.7-2.0) mmol/L Calcium 13.4 H* (8.4-10.2) mg/dL Total Bilirubin 2.5 H (0.2-1.3) mg/dL CK-MB (CK-2) 5.9 H (0.0-2.4) ng/mL Troponin I 1.630 H* (0.000-0.034) ng/mL Total Protein 6.0 L (6.3-8.2) g/dL Albumin 2.7 L (3.5-5.0) g/dL Urine Appearance (Clear) Urine Protein (Negative) Urine Blood (Negative) Urine Bilirubin (Negative) Ur Leukocyte Esterase (Negative) Urine WBC (0-5) /hpf Urine Bacteria (None) /hpf Hyaline Casts (0-2) /lpf Urine Mucus (None) /hpf Stool Occult Blood (Negative) 11/09/19 11/09/19 11/09/19 Range/Units 03:10 03:10 07:20 WBC (3.8-10.6) k/uL RBC (3.80-5.40) m/uL Hgb (11.4-16.0) gm/dL Hct (34.0-46.0) % Plt Count (150-450) k/uL Neutrophils # (1.3-7.7) k/uL Lymphocytes # (1.0-4.8) k/uL Chloride (98-107) mmol/L Carbon Dioxide (22-30) mmol/L BUN (7-17) mg/dL Creatinine (0.52-1.04) mg/dL Glucose (74-99) mg/dL Plasma Lactic Acid Emilio 5.1 H* 4.3 H* (0.7-2.0) mmol/L Calcium (8.4-10.2) mg/dL Total Bilirubin (0.2-1.3) mg/dL CK-MB (CK-2) (0.0-2.4) ng/mL Troponin I 1.570 H* (0.000-0.034) ng/mL Total Protein (6.3-8.2) g/dL Albumin (3.5-5.0) g/dL Urine Appearance (Clear) Urine Protein (Negative) Urine Blood (Negative) Urine Bilirubin (Negative) Ur Leukocyte Esterase (Negative) Urine WBC (0-5) /hpf Urine Bacteria (None) /hpf Hyaline Casts (0-2) /lpf Urine Mucus (None) /hpf Stool Occult Blood (Negative) 11/09/19 Range/Units 11:58 WBC (3.8-10.6) k/uL RBC (3.80-5.40) m/uL Hgb (11.4-16.0) gm/dL Hct (34.0-46.0) % Plt Count (150-450) k/uL Neutrophils # (1.3-7.7) k/uL Lymphocytes # (1.0-4.8) k/uL Chloride (98-107) mmol/L Carbon Dioxide (22-30) mmol/L BUN (7-17) mg/dL Creatinine (0.52-1.04) mg/dL Glucose (74-99) mg/dL Plasma Lactic Acid Emilio 3.5 H* (0.7-2.0) mmol/L Calcium (8.4-10.2) mg/dL Total Bilirubin (0.2-1.3) mg/dL CK-MB (CK-2) (0.0-2.4) ng/mL Troponin I (0.000-0.034) ng/mL Total Protein (6.3-8.2) g/dL Albumin (3.5-5.0) g/dL Urine Appearance (Clear) Urine Protein (Negative) Urine Blood (Negative) Urine Bilirubin (Negative) Ur Leukocyte Esterase (Negative) Urine WBC (0-5) /hpf Urine Bacteria (None) /hpf Hyaline Casts (0-2) /lpf Urine Mucus (None) /hpf Stool Occult Blood (Negative) Thrombosis Risk Factor Assmnt - Choose All That Apply Any of the Below Risk Factors Present?: No Other Risk Factors: Yes Each Risk Factor Represents 3 Points: Age 75 years or older Other congenital or acquired thrombophilia - If yes, enter type in comment: No Thrombosis Risk Factor Assessment Total Risk Factor Score: 3 Thrombosis Risk Factor Assessment Level: Moderate Risk Assessment and Plan Assessment: Elevated troponin, rule out cardiac causes Hypercalcemia Acute and chronic kidney disease Altered mental status, possible baseline dementia, with some elements of metabolic encephalopathy elevated lactic acid Acute urinary tract infection Acute kidney injury Deconditioning and poor personal hygiene Upper extremity contracture Multiple pressure ulcer and excoriated skin hypertension Hyperlipidemia History of coronary artery disease DO NOT RESUSCITATE status Plan: from this is a 79 years old female who presents with complaint located medical issues including high troponin, hypercalcemia, kidney disease, elevated lactic acid, urinary tract infection . Continue with heparin drip, continue with IV fluids, continue with aspirin and statin, continue with Rocephin, follow-up culture results . Cardiology and nephrology already been consulted, will follow the recommendation. Patient condition and multiple medical problems mild. Very quickly and if she shows no signs of significant improvement then she might benefit from palliative care consult Labs and medication were reviewed.. Continue same treatment. Continue with symptomatic treatment. Resume home medication. Monitor lytes and vitals. DVT and GI prophylaxis. Further recommendations of the clinical course of the patient DVT prophy: heparin GI Prophylaxis: Pepcid Prognosis is guarded
--- NOTE | 2019-11-09 16:10 | CONS ---
CONSULTATION REASON FOR CONSULT: Renal failure. HISTORY OF PRESENT ILLNESS: Patient is a 79-year-old female who was admitted to the hospital with increased weakness. Patient was not able to get out of bed for about 7 days and was found in urine and feces. Patient was noted to have an elevated troponin. She was also in atrial fibrillation with RVR, now converted back to normal sinus rhythm. Serum creatinine is 2.9 mg/dL from yesterday. We do not have any labs today. Review of previous labs shows a creatinine of 2.3 on 12/02/2018. I am not sure if this was an acute kidney injury or chronic kidney disease. Currently patient has an indwelling Coleman catheter. She is making some urine. Blood pressure has not been significantly low. Patient was on JAZMIN inhibitors at home which are currently on hold. PAST MEDICAL HISTORY: Hypertension, osteoarthritis, hyperlipidemia, history of NH, coronary artery disease, previous history of pneumonia. PAST SURGICAL HISTORY: Cardiac catheterization, coronary stent placement, tubal ligation. SOCIAL HISTORY: Patient is a former smoker. No history of drug abuse or alcohol abuse. MEDICATIONS: Medications prior to admission included vitamin C, aspirin, Coreg, vitamin D3, iron, Lasix, Plavix, Zocor, Maryneal, Motrin. ALLERGIES: None. REVIEW OF SYSTEMS: As per HPI. PHYSICAL EXAMINATION: On examination, patient is comfortable. She is awake, not able to give a detailed history, not in any acute distress. Blood pressure is 134/83, heart rate 93 per minute, she is afebrile. Examination of the heart S1, S2. Examination of the lungs, bilateral breath sounds are heard. Abdomen is soft, nontender. Examination of lower extremities shows edema 1+. Chronic skin changes with atrophy of the muscles noted. 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 There is deformity noted in both hands with contractures as well. LABS: Show from yesterday sodium 139, potassium 4.1, chloride 109, CO2 is 16, BUN 85, creatinine 2.9. Lactic acid was 3.9 and went up to 5.1. Calcium was 13.4. ASSESSMENT: 1. Acute kidney injury, prerenal as well as secondary to hypercalcemia. Continue off JAZMIN inhibitors. Maintain IV fluids. Repeat labs today and then again in a.m. Continue with indwelling Coleman catheter for now. 2. Metabolic acidosis, anion gap, secondary to renal failure and lactic acidosis. Repeat labs today. 3. Lactic acidosis maintained on IV fluids. The patient is maintained on empiric antibiotics. She is not hypotensive. 4. Elevated troponin, being followed by Cardiology. 5. Hypercalcemia. Check PTH levels, vitamin D level. Continue with normal saline. Avoid calcium supplements. Repeat labs today. 6. Rule out chronic kidney disease. May have a previous creatinine of 2.3 on 12/02/2018. I am not sure if this was an acute kidney injury since we have only one reading. 7. Dementia. 8. Gastrointestinal bleed. Hemoglobin was 16.5 yesterday. Will repeat labs today. PLAN: Continue IV fluids. Check labs today. Check PTH, vitamin D levels. Check total CK level. Rule out rhabdomyolysis. Add IV bicarb if acidosis is not improved by tomorrow. Thank you for this consultation. We will continue to follow the patient with you during her hospitalization. MMODL / IJN: [id number] /
--- NOTE | 2019-11-09 16:21 | IR ---
EXAMINATION TYPE: IR cvc insert >=5 years DATE OF EXAM: 11/09/2019 COMPARISON: NONE CLINICAL HISTORY: A tract infection Needs long-term intravenous access for antibiotics. PROCEDURE: Hand hygiene obtained with soap and water. After informed consent, the skin overlying the right brachial vein was localized with ultrasound and noted to be compressible and patent. An ultrasound image was obtained and submitted on the patient's chart. The overlying skin was prepped and draped and Lidocaine was used for local anesthesia. A sk in rebecca was made with a scalpel. Access was gained to the vein under ultrasound guidance with a 21 g auge needle and a 0.018 inch wire was advanced. Access site was dilated with Peel-Away sheath and ca theter tailored to the appropriate length and advanced such that the distal tip is at the cavoatrial junction. Spot image was obtained verifying placement. Catheter was fixed to the skin and a sterile dressing was placed following hemostasis. Catheter was aspirated and flushed with saline. Patient was discharged in stable condition without complication.Maximal barrier technique is utilized. Ultra sound image is documented on the chart. Ultrasound used with sterile technique. Fluoro time and fluoroscopic images submitted to document procedure: 134 intraoperative images, 2.2 m inutes fluoroscopy time IMPRESSION: STATUS POST ULTRASOUND AND FLUOROSCOPIC GUIDED PICC LINE PLACEMENT, READY FOR USE. THIS PROCEDURE WAS PERFORMED BY THE UNDERSIGNED.
[2019-11-09] MEDS: CARVEDILOL 12.5 MG TAB PO SCH (16:40)
[2019-11-09] MEDS: ASPIRIN 325 MG TAB PO SCH (16:40)
[2019-11-09 17:45] LABS: Basophils % (A) 0 %; Eosinophils % (A) 0 %; HCT 42.1 % (34.0-46.0); Lymphocytes # (A) 0.5 k/uL (1.0-4.8); Lymphocytes % (A) 5 %; MCH 28.5 pg (25.0-35.0); MCHC 32.1 g/dL (31.0-37.0); MCV 88.6 fL (80.0-100.0); Mean Platelet Volume 9.4; Monocytes # (A) 0.3 k/uL (0-1.0); Monocytes % (A) 3 %; Neutrophils # (A) 8.8 k/uL (1.3-7.7); Neutrophils % (A) 91 %; RBC 4.75 m/uL (3.80-5.40); RDW 14.8 % (11.5-15.5); WBC 9.7 k/uL (3.8-10.6)
[2019-11-09 17:58] LABS: HGB 13.5 gm/dL (11.4-16.0); Platelet Count 67 k/uL (150-450)
[2019-11-09 18:13] LABS: Potassium 3.8 mmol/L (3.5-5.1)
[2019-11-09] MEDS: FAMOTIDINE 20 MG/2 ML VIAL IV SCH (20:53)
[2019-11-09] MEDS: ATORVASTATIN 20 MG TAB PO SCH (20:54)
[2019-11-10 04:30] LABS: Basophils % (A) 0 %; Eosinophils % (A) 0 %; HCT 34.2 % (34.0-46.0); Lymphocytes # (A) 0.5 k/uL (1.0-4.8); Lymphocytes % (A) 8 %; MCH 28.5 pg (25.0-35.0); MCHC 32.2 g/dL (31.0-37.0); MCV 88.5 fL (80.0-100.0); Monocytes # (A) 0.2 k/uL (0-1.0); Monocytes % (A) 3 %; Neutrophils # (A) 4.9 k/uL (1.3-7.7); Neutrophils % (A) 87 %; RBC 3.86 m/uL (3.80-5.40); RDW 14.8 % (11.5-15.5); WBC 5.6 k/uL (3.8-10.6)
[2019-11-10 04:53] LABS: Albumin 1.7 g/dL (3.5-5.0); Calcium 11.3 mg/dL (8.4-10.2); Magnesium 1.7 mg/dL (1.6-2.3); Phosphorus 3.5 mg/dL (2.5-4.5); Potassium 3.7 mmol/L (3.5-5.1); Total Bilirubin 1.1 mg/dL (0.2-1.3); Total Protein 4.1 g/dL (6.3-8.2)
[2019-11-10 05:34] LABS: Anisocytosis (M) Present; Platelet Count 56 k/uL (150-450); Polychromasia Present
[2019-11-10] MEDS: SODIUM CHLORIDE 0.9% 1,000 ML IV SCH ×2 (06:23→22:55)
[2019-11-10] MEDS: CARVEDILOL 12.5 MG TAB PO SCH ×2 (06:25→22:55)
--- NOTE | 2019-11-10 07:25 | P.PN ---
Subjective This is a pleasant 79 years old female with past medical history of hyperlipidemia, hypertension, coronary artery disease status post stent placemen t . Patient is poor historian and could not provide information which were obtained from the records and staff, as per records Through EMS patient was weak and not getting out of bed for about 7 days and she has been poorly RESPONSIVE AT HOME HAS FAMILY MEMBERS CALLED AMBULANCE. Patient was found salt in her urine and a stool, as per record she able to provide one or 2 word answers She needs Vitals are stable and patient is afebrile. Labs showed leukocytosis of 12.5k, hemoglobin 16.5, INR is 1.1, creatinine is elevated at 2.9, baseline is 2.3, calcium is elevated at 13.4, sodium and potassium are within normal limits, lactic acid is elevated at 3.9 and 5.1, liver enzymes AST and ALT are within normal limits, troponin is elevated at 1.6 and 1.5, TSH is within normal limits. Echocardiogram showing normal size of LV, moderate LVH, ejection fraction more than 70% Accounting Systems Manager evaluated the patient already on come and recommended history start aspirin and statin with consideration of hospice care patient already started on ceftriaxone and heparin drip and normal/500 mL per hour 11/10/2019 Patient this morning still with altered mental status, she does not open eyes spontaneously, she is not answering questions and commands, painful stimuli caused a response but no withdrawal. Patient extended family, nephews came yesterday and staff, stating that patient was taking care of herself and she lives with her son, last week she was able to walk to the restroom mainly. She still have contractures in her left right advanced and upper extremities, she is on nasal cannula at 2 L, Coleman catheter is in place with some yellow urine in the back. Her vitals are stable, patient is afebrile. hemodilution once all cell lines are lower with wbc of 5.6k, hemoglobin 11, platelet 56, alk phos and normal, creatinine slightly worse at 2.8, lactic acid came back to normal at 1.3. Calcium is 11.3, calcium is a due to immobility, dehydration and possible bone disease, hormone and vitamin D as patient is followed closely by nephrology and cardiology team. She is on heparin drip and Cardizem drip, although the vessel there. Start her on subcutaneous heparin. She is also on Rocephin 1 g daily, and normal saline at 75 mL/h Review of systems: N/a Active Medications Generic Name Dose Route Start Last Admin Trade Name Frezaid PRN Reason Stop Dose Admin Acetaminophen 650 mg 11/09/19 00:57 Tylenol Tab PO Q6HR PRN Mild Pain or Fever > 100.5 Albuterol/Ipratropium 3 ml 11/09/19 13:20 Duoneb 0.5 Mg-3 Mg/3 Ml Soln INHALATION RT-QID PRN Shortness Of Breath Or Wheezing Aspirin 325 mg 11/09/19 13:30 11/09/19 16:40 Aspirin PO 325 mg DAILY NELDA Administration Atorvastatin Calcium 20 mg 11/09/19 21:00 11/09/19 20:54 Lipitor PO 20 mg HS NELDA Administration Carvedilol 12.5 mg 11/09/19 17:30 11/10/19 06:25 Coreg PO Not Given BID-W/MEALS NELDA Famotidine 20 mg 11/09/19 21:00 11/09/19 20:53 Pepcid IV 20 mg Q12HR NELDA Administration Heparin Sodium (Porcine) 0 unit 11/09/19 00:56 Heparin IV PER PROTOCOL PRN Low PTT Protocol Diltiazem HCl 125 mg/ Sodium 125 mls @ 5 mls/hr 11/09/19 01:00 11/09/19 23:51 Chloride IV Not Given .Q24H NELDA 5 MG/HR Heparin Sodium/Sodium Chloride 250 mls @ 6.641 mls/hr 11/09/19 01:00 11/09/19 23:51 25,000 unit/ Sodium Chloride IV Not Given .Q24H NEL[facility] Protocol 12 UNITS/KG/HR Sodium Chloride 1,000 mls @ 100 mls/hr 11/09/19 01:00 11/10/19 06:23 Saline 0.9% IV 100 mls/hr .Q10H NELDA Administration Ceftriaxone Sodium 1 gm/ 50 mls @ 100 mls/hr 11/10/19 09:00 Sodium Chloride IVPB Q24HR [facility] Naloxone HCl 0.2 mg 11/09/19 00:57 Narcan IV Q2M PRN Opioid Reversal Sodium Chloride 10 ml 11/09/19 16:19 Saline Flush IV Q4HR PRN PICC Line Sodium Chloride 10 ml 11/16/19 09:00 Saline Flush IV WEEKLY NELDA Sodium Chloride 20 ml 11/09/19 16:19 Saline Flush IV Q4HR PRN PICC Line Objective - Vital Signs Vital signs: Vital Signs Temp 98.2 F 11/10/19 04:00 Pulse 60 11/10/19 04:00 Resp 18 11/10/19 04:00 BP 113/54 11/10/19 04:00 Pulse Ox 97 11/10/19 04:00 Intake & Output 11/09/19 11/10/19 11/10/19 18:59 06:59 18:59 Intake Total 0 2140 Output Total 100 250 Balance -100 1890 Weight 81.5 kg Intake: Intake, IV Titration 1600 Amount Sodium Chloride 0.9% 1, 1600 000 ml @ 100 mls/hr IV . Q10H [facility] Rx#:[id number] Oral 0 540 Output: Urine 100 250 Other: Voiding Method Indwelling Catheter Indwelling Catheter # Voids 0 # Bowel Movements 3 - Exam -GENERAL: The patient is confused and not answering questions today, not in any acute distress. Patient looks emaciated HEENT: Pupils are round and equally reacting to light. EOMI. No scleral icterus. No conjunctival pallor. Normocephalic, atraumatic. No pharyngeal erythema. No thyromegaly. CARDIOVASCULAR: S1 and S2 present. No murmurs, rubs, or gallops. PULMONARY: Chest is clear to auscultation, no wheezing or crackles. ABDOMEN: Soft, nontender, nondistended, normoactive bowel sounds. No palpable organomegaly. MUSCULOSKELETAL: No joint swelling or deformity. -EXTREMITIES: No cyanosis, clubbing, or pedal edema. Severely longer thickened toenails. Also patient has contracted upper extremity and also some degree of the lower extremity NEUROLOGICAL: Gross neurological examination did not reveal any focal deficits. -SKIN: No rashes. No petechiae, multiple pressure sores with excoriated skin in the lower back and rash - Labs CBC & Chem 7: 11/10/19 04:07 11/10/19 04:07 Labs: Abnormal Lab Results - Last 24 Hours (Table) 11/09/19 11/09/19 11/09/19 Range/Units 07:20 11:58 17:17 Hgb (11.4-16.0) gm/dL Plt Count (150-450) k/uL Neutrophils # (1.3-7.7) k/uL Lymphocytes # (1.0-4.8) k/uL Chloride (98-107) mmol/L Carbon Dioxide (22-30) mmol/L BUN (7-17) mg/dL Creatinine (0.52-1.04) mg/dL Plasma Lactic Acid Emilio 4.3 H* 3.5 H* (0.7-2.0) mmol/L Calcium (8.4-10.2) mg/dL AST (14-36) U/L Troponin I 2.180 H* (0.000-0.034) ng/mL Total Protein (6.3-8.2) g/dL Albumin (3.5-5.0) g/dL 11/09/19 11/09/19 11/10/19 Range/Units 17:17 17:17 04:07 Hgb (11.4-16.0) gm/dL Plt Count 67 L (150-450) k/uL Neutrophils # 8.8 H (1.3-7.7) k/uL Lymphocytes # 0.5 L (1.0-4.8) k/uL Chloride 115 H 117 H (98-107) mmol/L Carbon Dioxide 19 L 19 L (22-30) mmol/L BUN 84 H 83 H (7-17) mg/dL Creatinine 2.69 H 2.80 H (0.52-1.04) mg/dL Plasma Lactic Acid Emilio (0.7-2.0) mmol/L Calcium 12.0 H 11.3 H (8.4-10.2) mg/dL AST 39 H (14-36) U/L Troponin I (0.000-0.034) ng/mL Total Protein 4.1 L (6.3-8.2) g/dL Albumin 1.7 L (3.5-5.0) g/dL 11/10/19 Range/Units 04:07 Hgb 11.0 L (11.4-16.0) gm/dL Plt Count 56 L (150-450) k/uL Neutrophils # (1.3-7.7) k/uL Lymphocytes # 0.5 L (1.0-4.8) k/uL Chloride (98-107) mmol/L Carbon Dioxide (22-30) mmol/L BUN (7-17) mg/dL Creatinine (0.52-1.04) mg/dL Plasma Lactic Acid Emilio (0.7-2.0) mmol/L Calcium (8.4-10.2) mg/dL AST (14-36) U/L Troponin I (0.000-0.034) ng/mL Total Protein (6.3-8.2) g/dL Albumin (3.5-5.0) g/dL Microbiology - Last 24 Hours (Table) 11/08/19 22:20 Blood Culture - Preliminary Blood No Growth after 24 hours Assessment and Plan Assessment: Elevated troponin, rule out cardiac causes Altered mental status, possible baseline dementia, with some elements of metabolic encephalopathy Hypercalcemia Acute and chronic kidney disease elevated lactic acid, came back to normal Pancytopenia, & anemia Acute urinary tract infection Acute kidney injury Deconditioning and poor personal hygiene Upper extremity contracture Multiple pressure ulcer and excoriated skin hypertension Hyperlipidemia History of coronary artery disease DO NOT RESUSCITATE status Plan: from this is a 79 years old female who presents with complaint located medical issues including high troponin, hypercalcemia, kidney disease, urinary tract infection . Continue with IV fluids, continue with aspirin and statin, c ontinue with Rocephin, follow-up culture results . Cardiology and nephrology already been consulted, will follow the recommendation. Consult neurology. if she shows no signs of significant improvement then she might benefit from palliative care consult Labs and medication were reviewed.. Continue same treatment. Continue with symptomatic treatment. Resume home medication. Monitor lytes and vitals. DVT and GI prophylaxis. Further recommendations of the clinical course of the patient DVT prophy: heparin GI Prophylaxis: Pepcid Prognosis is guarded
[2019-11-10 11:08] LABS: Folate, Serum 1.3 ng/mL
[2019-11-10 11:14] LABS: % Iron Saturation 41.94 (12.00-45.00); Ferritin 1022.7 ng/mL (10.0-291.0)
--- NOTE | 2019-11-10 11:18 | US ---
EXAMINATION TYPE: US kidneys/renal and bladder DATE OF EXAM: 11/10/2019 COMPARISON: US 2011 CLINICAL HISTORY: rf. RENAL FAILURE EXAM MEASUREMENTS: Right Kidney: 8.9 x 3.6 x 4.2 cm Left Kidney: 9.3 x 3.9 x 3.8 cm Right Kidney: No hydronephrosis or masses seen Left Kidney: small 1.0 x 0.6 x 0.7 cm cyst. Bladder: seen with catheter within ? possible accessory spleen measures 1.7 x 1.3 cm, has same echotexture and granulomas like spleen. Increased cortical echogenicity right kidney. Some cortical thinning left kidney. Simple appearing mac bcentimeter thin-walled cyst left kidney midpole level. Coleman catheter in bladder which is not comple tely decompressed. IMPRESSION: Evidence of chronic medical renal disease bilaterally. No hydronephrosis is present bilat erally.
[2019-11-10] MEDS: HEPARIN SODIUM,PORCINE 5,000 UNIT/ML 1 ML VIAL SQ SCH ×2 (11:36→22:31)
[2019-11-10] MEDS: FAMOTIDINE 20 MG/2 ML VIAL IV SCH (11:36)
--- NOTE | 2019-11-10 12:01 | P.PN ---
Subjective Progress Note Date: 11/10/19 This is a 79-year-old female, history was obtained from the medical record as the patient was quite confused. She does have a history of underlying dementia and possible delirium according to the medical records. History also of hyperlipidemia, hypertension. Apparently EMS was called, patient was quite weak and had not gotten out of bed for the past 7 days or so, and was somewhat unresponsive. Patient was found in the bed which was soiled with urine and stool. The reason a cardiology consultation was requested was because of abnormality in troponin. Chest x-ray on arrival here showed a masslike consolidation in the left upper lobe, follow-up recommended. Her EKG on presentation here showed a normal sinus rhythm, right bundle branch block pattern, with nonspecific ST-T wave changes. Blood pressure 105/80 with a heart rate of 90, afebrile, 91% on room air. White blood cell count 12.5, hemoglobin 16.5, platelet count 105. Sodium 139, potassium 4.1, BUN 85, creatinine 2.9. P lasma lactic acid up to 5.1. Total bilirubin 2.5. Troponin 1.6, 1.5. Positive UTI, positive stool for occult blood. At the time of my examination this morning, patient is lying in bed, intermittently will answer with one-word. Quite unkempt,frail. 11/10/2019 Patient seen and examined this morning, continues to be fairly unresponsive. Echocardiogram with Doppler study was performed which revealed a hyperdynamic LV function of greater than 70%. Blood pressure 120/60 with a heart rate in the 60s. We will discontinue the IV Cardizem, decrease her aspirin to 81 mg daily. White blood cell count 5.6, hemoglobin 11, platelet count 56. Sodium 142, potassium 3.7, BUN 83, creatinine up to 2.8 today. Objective - Vital Signs Vital signs: Vital Signs Temp 98.2 F 11/10/19 04:00 Pulse 62 11/10/19 08:00 Resp 18 11/10/19 08:00 BP 121/57 11/10/19 08:00 Pulse Ox 97 11/10/19 08:00 Intake & Output 11/09/19 11/10/19 11/10/19 18:59 06:59 18:59 Intake Total 0 2140 50 Output Total 100 250 Balance -100 1890 50 Weight 81.5 kg Intake: Intake, IV Titration 1600 50 Amount Sodium Chloride 0.9% 1, 1600 000 ml @ 75 mls/hr IV . [id number] Rx#:[id number] cefTRIAXone 1 gm In 50 Sodium Chloride 0.9% 50 ml @ 100 mls/hr IVPB Q24HR [facility] Rx#:[id number] Oral 0 540 Output: Urine 100 250 Other: Voiding Method Indwelling Catheter Indwelling Catheter Indwelling Catheter # Voids 0 0 # Bowel Movements 3 0 - Exam PHYSICAL EXAMINATION: GENERAL: 79-year-old frail, unkempt female, in no acute distress at the time of my examination HEENT: Head is atraumatic, normocephalic. Pupils equal, round. Sclera anicteric. Conjunctiva are clear. Mucous membranes of the mouth are moist. Neck is supple. There is no elevated jugular venous pressure. No carotid bruit is heard. HEART EXAMINATION: Heart S1 S2 1 systolic murmur is heard CHEST EXAMINATION: Lungs reveal scattered rhonchi throughout ABDOMEN: Soft, nontender. Bowel sounds are heard. No organomegaly noted. EXTREMITIES:[ 1+ peripheral pulses to the lower extremities, several ecchymotic areas noted, chronic venous stasis NEUROLOGIC patient is sleeping, arousable, mostly unresponsive, will answer with one-word responses . - Labs CBC & Chem 7: 11/10/19 04:07 11/10/19 04:07 Labs: Abnormal Lab Results - Last 24 Hours (Table) 11/09/19 11/09/19 11/09/19 Range/Units 11:58 17:17 17:17 Hgb (11.4-16.0) gm/dL Plt Count 67 L (150-450) k/uL Neutrophils # 8.8 H (1.3-7.7) k/uL Lymphocytes # 0.5 L (1.0-4.8) k/uL Chloride (98-107) mmol/L Carbon Dioxide (22-30) mmol/L BUN (7-17) mg/dL Creatinine (0.52-1.04) mg/dL Plasma Lactic Acid Emilio 3.5 H* (0.7-2.0) mmol/L Calcium (8.4-10.2) mg/dL TIBC (228-460) ug/dL Ferritin (10.0-291.0) ng/mL AST (14-36) U/L Troponin I 2.180 H* (0.000-0.034) ng/mL Total Protein (6.3-8.2) g/dL Albumin (3.5-5.0) g/dL 11/09/19 11/10/19 11/10/19 Range/Units 17:17 04:07 04:07 Hgb 11.0 L (11.4-16.0) gm/dL Plt Count 56 L (150-450) k/uL Neutrophils # (1.3-7.7) k/uL Lymphocytes # 0.5 L (1.0-4.8) k/uL Chloride 115 H 117 H (98-107) mmol/L Carbon Dioxide 19 L 19 L (22-30) mmol/L BUN 84 H 83 H (7-17) mg/dL Creatinine 2.69 H 2.80 H (0.52-1.04) mg/dL Plasma Lactic Acid Emilio (0.7-2.0) mmol/L Calcium 12.0 H 11.3 H (8.4-10.2) mg/dL TIBC (228-460) ug/dL Ferritin (10.0-291.0) ng/mL AST 39 H (14-36) U/L Troponin I (0.000-0.034) ng/mL Total Protein 4.1 L (6.3-8.2) g/dL Albumin 1.7 L (3.5-5.0) g/dL 11/10/19 Range/Units 06:29 Hgb (11.4-16.0) gm/dL Plt Count (150-450) k/uL Neutrophils # (1.3-7.7) k/uL Lymphocytes # (1.0-4.8) k/uL Chloride (98-107) mmol/L Carbon Dioxide (22-30) mmol/L BUN (7-17) mg/dL Creatinine (0.52-1.04) mg/dL Plasma Lactic Acid Emilio (0.7-2.0) mmol/L Calcium (8.4-10.2) mg/dL TIBC 124 L (228-460) ug/dL Ferritin 1022.7 H (10.0-291.0) ng/mL AST (14-36) U/L Troponin I (0.000-0.034) ng/mL Total Protein (6.3-8.2) g/dL Albumin (3.5-5.0) g/dL Microbiology - Last 24 Hours (Table) 11/08/19 22:20 Blood Culture - Final Blood Assessment and Plan Plan: Assessment and plan #1 weakness, unresponsiveness. #2 elevated lactic acid #3 heme-positive stool #4 abnormality in troponin, could represent an acute coronary event. #5 hypertension #6 hyperlipidemia #7 dementia #8 renal failure, likely secondary to dehydration #9 UTI Plan Echocardiogram with Doppler study was performed which revealed a hyperdynamic LV function greater than 70%. We will discontinue the IV Cardizem, decrease aspirin to 81 mg daily and continue supportive care. DNP note has been reviewed, I agree with a documented findings and plan of care. Patient was seen and examined.
--- NOTE | 2019-11-10 13:09 | P.CNNES ---
History of Present Illness Consult date: 11/10/19 Requesting physician: Issa Notrh Reason for Consult: Encephalopathy History of Present Illness: Patient is a 79-year-old female, who was brought to the hospital for altered mental status. Patient apparently lives by herself, talks normally, manages her home somewhat minimally. She was found at her home laying for few days in her own feces, not able to speak, with altered mental status. She was brought to the hospital Saturday night, 11/08/2019 at 9:13 PM. There is some report of patient with history of dementia. Patient not able to provide any history, all reports obtained from electronic medical records. Patient has history of rheumatoid arthritis, with deformities of the hands and fingers. Patient has history of hypertension, hyperlipidemia. 2-D echo showed sinus rhythm. EF is > 70%. Left atrial size normal. Right atrial size normal. Interatrial and interventricular septum intact. Mild aorti c valve sclerosis. Mild aortic regurgitation. Mild mitral annular calcification. Mild tricuspid regurgitation. Computed tomography scan of head showed cerebral atrophy. Large parietal white matter hypodense area more likely related to ischemia in view of lack of any mass effect. 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 No underlying mass identified. Review of Systems ROS unobtainable: due to mental status Past Medical History Past Medical History: Hyperlipidemia, Hypertension, Myocardial Infarction (AR), Pneumonia Last Myocardial Infarction Date:: 02/25/2012 History of Any Multi-Drug Resistant Organisms: None Reported Past Surgical History: Heart Catheterization With Stent, Tubal Ligation Past Anesthesia/Blood Transfusion Reactions: No Reported Reaction Date of Last Stent Placement:: 02/2012 Past Psychological History: No Psychological Hx Reported Smoking Status: Former smoker - Past Family History Mother Family Medical History: Cancer, Hypertension, Thyroid Disorder Son(s) Family Medical History: Cancer Medications and Allergies Home Medications Medication Instructions Recorded Confirmed Type Albuterol Inhaler [Ventolin Hfa 2 puff INHALATION RT-Q4H PRN 12/02/18 11/09/19 History Inhaler] Ascorbic Acid [Vitamin C] 250 mg PO BID 12/02/18 11/09/19 History Aspirin 325 mg PO DAILY 12/02/18 11/09/19 History Carvedilol [Coreg] 12.5 mg PO BID 12/02/18 11/09/19 History Cholecalciferol [Vitamin D3] 1,000 unit PO DAILY 12/02/18 11/09/19 History Ferrous Sulfate [Feosol] 325 mg PO BID 12/02/18 11/09/19 History Furosemide [Lasix] 20 mg PO DAILY 12/02/18 11/09/19 History Lisinopril [Prinivil] 20 mg PO BID 12/02/18 11/09/19 History Multivitamins, Thera [Multivitamin 1 tab PO DAILY 12/02/18 11/09/19 History (formulary)] Simvastatin [Zocor] 40 mg PO HS 11/09/19 11/09/19 History Allergies Allergy/AdvReac Type Severity Reaction Status Date / Time No Known Allergies Allergy Verified 11/09/19 10:04 Physical Examination - Vital Signs Vital Signs: Vital Signs Temp Pulse Resp BP Pulse Ox 11/10/19 12:00 61 18 135/60 98 11/10/19 08:00 97.8 F 62 18 121/57 97 11/10/19 04:00 98.2 F 60 18 113/54 97 11/10/19 00:00 98.0 F 62 18 114/62 98 11/09/19 20:00 98.5 F 68 18 125/70 100 11/09/19 16:00 18 119/76 95 Intake and Output 11/09/19 11/10/19 11/10/19 22:59 06:59 14:59 Intake Total 1340 800 50 Output Total 50 250 Balance 1290 550 50 Intake: Intake, IV Titration 800 800 50 Amount Sodium Chloride 0.9% 1, 800 800 000 ml @ 75 mls/hr IV . [id number] [facility] Rx#:[id number] cefTRIAXone 1 gm In 50 Sodium Chloride 0.9% 50 ml @ 100 mls/hr IVPB Q24HR [facility] Rx#:[id number] Oral 540 Output: Urine 50 250 Other: Voiding Method Indwelling Catheter Indwelling Catheter Indwelling Catheter # Voids 0 # Bowel Movements 3 0 Weight 81.5 kg On examination patient is an elderly female, in no distress. Patient is encephalopathic, moans and groans, does not able to speak any words. Patient laying on the right side. No obvious facial droop noted. Pupils are round and reacting. Visual lo could not be tested. Patient's tone is slightly increased more on the right as compared to left. Her hand and fingers are deformed from rheumatoid arthritis. Patient has significant discoloration of her lower legs and the feet probably from venous stasis. Plantars are equivocal. No obvious bruit. Mild peripheral edema. Results B12 is 410, folate 1.3, vitamin D 37.6 and PT is 14.5. Troponin 2.18. Patient has chronic renal insufficiency. - Laboratory Findings CBC and BMP: 11/10/19 04:07 11/10/19 04:07 Abnormal Lab Findings: Abnormal Labs 11/08/19 11/08/19 11/08/19 21:00 21:00 22:20 WBC 12.5 H RBC 5.83 H Hgb 16.5 H Hct 51.2 H Plt Count 105 L Neutrophils # 11.3 H Lymphocytes # 0.7 L Chloride Carbon Dioxide BUN Creatinine Glucose Plasma Lactic Acid Emilio Calcium TIBC Ferritin Total Bilirubin AST CK-MB (CK-2) Troponin I Total Protein Albumin Urine Appearance Cloudy H Urine Protein 1+ H Urine Blood Trace H Urine Bilirubin 1+ H Ur Leukocyte Esterase Moderate H Urine WBC 8 H Urine Bacteria Many H Hyaline Casts 62 H Urine Mucus Many H Stool Occult Blood Positive H 11/08/19 11/08/19 11/08/19 22:20 22:20 22:20 WBC RBC Hgb Hct Plt Count Neutrophils # Lymphocytes # Chloride 109 H Carbon Dioxide 16 L BUN 85 H Creatinine 2.99 H Glucose 119 H Plasma Lactic Acid Emilio 3.9 H* Calcium 13.4 H* TIBC Ferritin Total Bilirubin 2.5 H AST CK-MB (CK-2) 5.9 H Troponin I 1.630 H* Total Protein 6.0 L Albumin 2.7 L Urine Appearance Urine Protein Urine Blood Urine Bilirubin Ur Leukocyte Esterase Urine WBC Urine Bacteria Hyaline Casts Urine Mucus Stool Occult Blood 11/09/19 11/09/19 11/09/19 03:10 03:10 07:20 WBC RBC Hgb Hct Plt Count Neutrophils # Lymphocytes # Chloride Carbon Dioxide BUN Creatinine Glucose Plasma Lactic Acid Emilio 5.1 H* 4.3 H* Calcium TIBC Ferritin Total Bilirubin AST CK-MB (CK-2) Troponin I 1.570 H* Total Protein Albumin Urine Appearance Urine Protein Urine Blood Urine Bilirubin Ur Leukocyte Esterase Urine WBC Urine Bacteria Hyaline Casts Urine Mucus Stool Occult Blood 11/09/19 11/09/19 11/09/19 11:58 17:17 17:17 WBC RBC Hgb Hct Plt Count 67 L Neutrophils # 8.8 H Lymphocytes # 0.5 L Chloride Carbon Dioxide BUN Creatinine Glucose Plasma Lactic Acid Emilio 3.5 H* Calcium TIBC Ferritin Total Bilirubin AST CK-MB (CK-2) Troponin I 2.180 H* Total Protein Albumin Urine Appearance Urine Protein Urine Blood Urine Bilirubin Ur Leukocyte Esterase Urine WBC Urine Bacteria Hyaline Casts Urine Mucus Stool Occult Blood 11/09/19 11/10/19 11/10/19 17:17 04:07 04:07 WBC RBC Hgb 11.0 L Hct Plt Count 56 L Neutrophils # Lymphocytes # 0.5 L Chloride 115 H 117 H Carbon Dioxide 19 L 19 L BUN 84 H 83 H Creatinine 2.69 H 2.80 H Glucose Plasma Lactic Acid Emilio Calcium 12.0 H 11.3 H TIBC Ferritin Total Bilirubin AST 39 H CK-MB (CK-2) Troponin I Total Protein 4.1 L Albumin 1.7 L Urine Appearance Urine Protein Urine Blood Urine Bilirubin Ur Leukocyte Esterase Urine WBC Urine Bacteria Hyaline Casts Urine Mucus Stool Occult Blood 11/10/19 06:29 WBC RBC Hgb Hct Plt Count Neutrophils # Lymphocytes # Chloride Carbon Dioxide BUN Creatinine Glucose Plasma Lactic Acid Emilio Calcium TIBC 124 L Ferritin 1022.7 H Total Bilirubin AST CK-MB (CK-2) Troponin I Total Protein Albumin Urine Appearance Urine Protein Urine Blood Urine Bilirubin Ur Leukocyte Esterase Urine WBC Urine Bacteria Hyaline Casts Urine Mucus Stool Occult Blood Assessment and Plan Assessment: * Altered mental status, with possible aphasia. Rule out subacute CVA. Rule out toxic metabolic encephalopathy. * Elevated cardiac enzymes. * Acute on chronic renal insufficiency * Hypercalcemia * Folate deficiency * Possible underlying dementia * Mild UTI. Plan: * MRI of the brain to evaluate for an acute to subacute stroke * Carotid Doppler to rule out carotid stenosis. * EEG to rule out any epileptiform activity. * Start folate replacement. * Cardiology also on board for elevated cardiac enzymes. * Patient on aspirin 81 mg and Lipitor, to be continued. * Patient also on Rocephin for UTI.
--- NOTE | 2019-11-10 14:29 | US ---
EXAMINATION TYPE: US carotid duplex BILAT DATE OF EXAM: 11/10/2019 COMPARISON: NONE CLINICAL HISTORY: CVA. CVA, exam done portable. EXAM MEASUREMENTS: RIGHT: Peak Systolic Velocity (PSV) cm/sec ----- Right CCA: 38.7 ----- Right ICA: 49.3 ----- Right ECA: 74.0 ICA/CCA ratio: 1.3 RIGHT: End Diastole cm/sec ----- Right CCA: 0.0 ----- Right ICA: 8.6 ----- Right ECA: 0.0 LEFT: Peak Systolic Velocity (PSV) cm/sec ----- Left CCA: 50.2 ----- Left ICA: 62.0 ----- Left ECA: 56.1 ICA/CCA ratio: 1.2 . LEFT: End Diastole cm/sec ----- Left CCA: 0.0 ----- Left ICA: 10.1 ----- Left ECA: 0.0 VERTEBRALS (direction of flow): Right Vertebral: Antegrade Left Vertebral: Antegrade Rhythm: Normal Pprs-vc-edguaztt peripheral plaque throughout the right common carotid artery slightly more prominent at right carotid bulb on grayscale images. More moderate peripheral plaque throughout the left commo n carotid artery with more severe shadowing focal plaque at the left carotid bulb. Velocity measureme nts and ratios remain within normal limits and visualized portions of both internal carotid arteries however. IMPRESSION: Asymmetric moderate to severe left-sided atherosclerotic change without hemodynamic sign ificant stenosis clearly seen in either internal carotid artery. Criteria for Assigning % of Stenosis / Diameter reduction (Estimation based on the indirect measurements of the internal carotid artery velocities (ICA PSV). 1. Normal (no stenosis)=ICA PSV < 125 cm/s: ratio < 2.0: ICA EDV<40 cm/s. 2. Less than 50% stenosis=ICA PSV < 125 cm/s: ratio < 2.0: ICA EDV<40 cm/s. 3. 50 to 69% stenosis=ICA PSV of 125 to 230 cm/s: ration 2.0 ? 4.0: ICA EDV 40-100 cm/s. 4. Greater than 70% stenosis to near occlusion= ICA PSV > 230 cm/s: ratio > 4.0: ICA EDV > 100 cm/s. 5. Near occlusion= ICA PSV velocities may be low or undetectable: variable ratio and ICA EDV. 6. Total occlusion=unable to detect flow.
[2019-11-10] MEDS ORDERED: FUROSEMIDE 10 MG/ML 4 ML VIAL IV STA (14:39)
[2019-11-10 15:06] VITALS: BMI 29.9
--- NOTE | 2019-11-10 15:59 | PN ---
PROGRESS NOTE The patient is seen for follow up for acute kidney injury and hypercalcemia. She currently has an indwelling Coleman catheter. Kmasmi-fpqw-umgb urine output has been on the lower side at about 350 mL. The patient is not communicating much. She is maintained on intravenous fluids. PHYSICAL EXAMINATION: This morning her blood pressure was 121/57, heart rate 62 per minute, she is afebrile. Examination of the heart: S1 and S2. Examination of the lungs: Decreased breath sounds at the bases. Abdomen is soft, nontender. Examination of the lower extremities shows significant chronic skin changes with muscle atrophy noted. Edema is noted 1+ bilaterally. LABS: Laboratories show sodium 142, potassium 3.7, chloride 117, CO2 is 19, BUN 83, creatinine 2.8. Hemoglobin 11.0 grams/dL. The ultrasound of the kidney shows no evidence of hydronephrosis. ASSESSMENT: 1. Acute kidney injury secondary to hypercalcemia, possibly underlying ATN as well. Urine output remains low. The patient is maintained on intravenous fluids. There is no evidence of obstruction. I will continue with the intravenous fluids for now. We will give her a dose of intravenous Lasix to help with the urine output. 2. Chronic kidney disease. Previous creatinine was 2.3 in December 2018, stage IV. 3. Hypercalcemia with appropriately low PTH level. Currently improving with hydration. 4. Gastrointestinal bleed. Hemoglobin down to 11 from 16.5 on initial admission. 5. Underlying dementia. 6. Atrial fibrillation with rapid ventricular response converted to sinus rhythm. PLAN: Continue normal saline or now. Repeat laboratories in a.m. Lasix x1 to help with urine output. Monitor electrolytes. Overall prognosis is guarded. MMODL / IJN: [id number] /
[2019-11-10] MEDS: ATORVASTATIN 20 MG TAB PO SCH (22:31)
[2019-11-10] MEDS: FOLIC ACID 1 MG TAB PO SCH (22:54)
[2019-11-10] MEDS: ASPIRIN 325 MG TAB PO SCH (23:29)
[2019-11-10] MEDS: DILTIAZEM 125 MG in SODIUM CHLORIDE 0.9% 100 ML IV SCH (23:57)
[2019-11-11] MEDS: CARVEDILOL 12.5 MG TAB PO SCH ×2 (06:29→17:02)
[2019-11-11] MEDS: SODIUM CHLORIDE 0.9% 1,000 ML IV SCH ×2 (06:33→17:02)
--- NOTE | 2019-11-11 08:03 | P.PN ---
Subjective This is a pleasant 79 years old female with past medical history of hyperlipidemia, hypertension, coronary artery disease status post stent placemen t . Patient is poor historian and could not provide information which were obtained from the records and staff, as per records Through EMS patient was weak and not getting out of bed for about 7 days and she has been poorly RESPONSIVE AT HOME HAS FAMILY MEMBERS CALLED AMBULANCE. Patient was found salt in her urine and a stool, as per record she able to provide one or 2 word answers She needs Vitals are stable and patient is afebrile. Labs showed leukocytosis of 12.5k, hemoglobin 16.5, INR is 1.1, creatinine is elevated at 2.9, baseline is 2.3, calcium is elevated at 13.4, sodium and potassium are within normal limits, lactic acid is elevated at 3.9 and 5.1, liver enzymes AST and ALT are within normal limits, troponin is elevated at 1.6 and 1.5, TSH is within normal limits. Echocardiogram showing normal size of LV, moderate LVH, ejection fraction more than 70% Senior Grant Writer evaluated the patient already on come and recommended history start aspirin and statin with consideration of hospice care patient already started on ceftriaxone and heparin drip and normal/500 mL per hour 11/10/2019 Patient this morning still with altered mental status, she does not open eyes spontaneously, she is not answering questions and commands, painful stimuli caused a response but no withdrawal. Patient extended family, nephews came yesterday and staff, stating that patient was taking care of herself and she lives with her son, last week she was able to walk to the restroom mainly. She still have contractures in her left right advanced and upper extremities, she is on nasal cannula at 2 L, Coleman catheter is in place with some yellow urine in the back. Her vitals are stable, patient is afebrile. hemodilution once all cell lines are lower with wbc of 5.6k, hemoglobin 11, platelet 56, alk phos and normal, creatinine slightly worse at 2.8, lactic acid came back to normal at 1.3. Calcium is 11.3, calcium is a due to immobility, dehydration and possible bone disease, hormone and vitamin D as patient is followed closely by nephrology and cardiology team. She is on heparin drip and Cardizem drip, although the vessel there. Start her on subcutaneous heparin. She is also on Rocephin 1 g daily, and normal saline at 75 mL/h 11/11/2019 Patient still has altered mental status however she looks better than yesterday where she was almost obtunded, currently she opens eyes to verbal and tactile stimuli, she can tell me her last name as " berden" and thereafter she answers "OK" for every answer, she is not in pain, she could not provide more information. Neurologist recommended MRI and EEG which are still pending, discussed with staff for nephrology follow-up. No fever, Vitas looks stable. Labs from today are still pending. Blood culture came back positive for gram positive cocci. Currently she remains on ceftriaxone and normal saline 75 mL/h, Cardizem drip was stopped. We are going to consult infectious disease Review of systems: N/a Active Medications Generic Name Dose Route Start Last Admin Trade Name Freq PRN Reason Stop Dose Admin Acetaminophen 650 mg 11/09/19 00:57 Tylenol Tab PO Q6HR PRN Mild Pain or Fever > 100.5 Albuterol/Ipratropium 3 ml 11/09/19 13:20 Duoneb 0.5 Mg-3 Mg/3 Ml Soln INHALATION RT-QID PRN Shortness Of Breath Or Wheezing Aspirin 81 mg 11/11/19 09:00 Aspirin PO DAILY [facility] Atorvastatin Calcium 20 mg 11/09/19 21:00 11/10/19 22:31 Lipitor PO Not Given HS NELDA Carvedilol 12.5 mg 11/09/19 17:30 11/11/19 06:29 Coreg PO 12.5 mg BID-W/MEALS NELDA Administration Famotidine 20 mg 11/11/19 09:00 Pepcid PO DAILY NELDA Folic Acid 1 mg 11/10/19 13:15 11/10/19 22:54 Folic Acid PO Not Given DAILY NELDA Heparin Sodium (Porcine) 5,000 unit 11/10/19 09:00 11/10/19 22:31 Heparin SQ 5,000 unit Q12HR NELDA Administration Diltiazem HCl 125 mg/ Sodium 125 mls @ 5 mls/hr 11/09/19 01:00 11/10/19 23:57 Chloride IV Not Given .Q24H NELDA 5 MG/HR Sodium Chloride 1,000 mls @ 75 mls/hr 11/09/19 01:00 11/11/19 06:33 Saline 0.9% IV 75 mls/hr .[id number] NELDA Administration Ceftriaxone Sodium 1 gm/ 50 mls @ 100 mls/hr 11/10/19 09:00 11/10/19 11:36 Sodium Chloride IVPB 100 mls/hr Q24HR NELDA Administration Naloxone HCl 0.2 mg 11/09/19 00:57 Narcan IV Q2M PRN Opioid Reversal Sodium Chloride 10 ml 11/09/19 16:19 Saline Flush IV Q4HR PRN PICC Line Sodium Chloride 10 ml 11/16/19 09:00 Saline Flush IV WEEKLY NELDA Sodium Chloride 20 ml 11/09/19 16:19 Saline Flush IV Q4HR PRN PICC Line Objective - Vital Signs Vital signs: Vital Signs Temp 97.7 F 11/11/19 04:00 Pulse 58 L 11/11/19 04:00 Resp 16 11/11/19 04:00 BP 132/63 11/11/19 04:00 Pulse Ox 99 11/11/19 04:00 Intake & Output 11/10/19 11/11/19 11/11/19 18:59 06:59 18:59 Intake Total 50 Output Total 175 400 Balance -125 -400 Weight 81.5 kg 81 kg Intake: Intake, IV Titration 50 Amount cefTRIAXone 1 gm In 50 Sodium Chloride 0.9% 50 ml @ 100 mls/hr IVPB Q24HR [facility] Rx#:[id number] Output: Urine 175 400 Other: Voiding Method Indwelling Catheter Indwelling Catheter # Voids 0 # Bowel Movements 0 1 - Exam -GENERAL: The patient is confused and not answering questions today, not in any acute distress. Patient looks emaciated HEENT: Pupils are round and equally reacting to light. EOMI. No scleral icterus. No conjunctival pallor. Normocephalic, atraumatic. No pharyngeal erythema. No thyromegaly. CARDIOVASCULAR: S1 and S2 present. No murmurs, rubs, or gallops. PULMONARY: Chest is clear to auscultation, no wheezing or crackles. ABDOMEN: Soft, nontender, nondistended, normoactive bowel sounds. No palpable organomegaly. MUSCULOSKELETAL: No joint swelling or deformity. -EXTREMITIES: No cyanosis, clubbing, or pedal edema. Severely longer thickened toenails. Also patient has contracted upper extremity and also some degree of the lower extremity NEUROLOGICAL: Gross neurological examination did not reveal any focal deficits. -SKIN: No rashes. No petechiae, multiple pressure sores with excoriated skin in the lower back and rash - Labs CBC & Chem 7: 11/10/19 04:07 11/10/19 04:07 Labs: Abnormal Lab Results - Last 24 Hours (Table) 11/10/19 Range/Units 06:29 TIBC 124 L (228-460) ug/dL Ferritin 1022.7 H (10.0-291.0) ng/mL Microbiology - Last 24 Hours (Table) 11/08/19 22:20 Blood Culture Gram Stain - Preliminary Blood 11/08/19 22:20 Blood Culture - Final Blood Assessment and Plan Assessment: Elevated troponin, rule out cardiac causes Altered mental status, possible baseline dementia, with some elements of metabolic encephalopathy. Rule out stroke Positive blood culture with gram-positive cocci Hypercalcemia Acute and chronic kidney disease elevated lactic acid, came back to normal Pancytopenia, & anemia Acute urinary tract infection Acute kidney injury Deconditioning and poor personal hygiene Upper extremity contracture Multiple pressure ulcer and excoriated skin hypertension Hyperlipidemia History of coronary artery disease DO NOT RESUSCITATE status Plan: from this is a 79 years old female who presents with complaint located medical issues including high troponin, hypercalcemia, kidney disease, urinary tract infection . Continue with IV fluids, continue with aspirin and statin, continue with Rocephin, follow-up culture results and I'll consult infectious disease team. Cardiology and nephrology already been consulted, will follow the recommendation. Consult neurology. if she shows no signs of significant improvement then she might benefit from palliative care consult Labs and medication were reviewed.. Continue same treatment. Continue with symptomatic treatment. Resume home medication. Monitor lytes and vitals. DVT and GI prophylaxis. Further recommendations of the clinical course of the patient DVT prophy: heparin GI Prophylaxis: Pepcid Prognosis is guarded
[2019-11-11] MEDS: FAMOTIDINE 20 MG TAB PO SCH (09:03)
[2019-11-11] MEDS: HEPARIN SODIUM,PORCINE 5,000 UNIT/ML 1 ML VIAL SQ SCH ×2 (09:03→20:27)
[2019-11-11] MEDS: ASPIRIN 81 MG PO SCH (09:03)
[2019-11-11] MEDS: FOLIC ACID 1 MG TAB PO SCH (09:03)
--- NOTE | 2019-11-11 15:16 | PN ---
PROGRESS NOTE Patient is seen for followup for acute kidney injury. Her renal function remains about the same with serum creatinine staying at 2.6-2.8 mg/dL. Patient is maintained on IV fluids. Her calcium has improved and is down to 11.3 as of yesterday. We do not have any labs from today. Mentation seems to have improved slightly. PHYSICAL EXAMINATION: Today, blood pressure was 114/70, heart rate 49 per minute, patient is afebrile. Examination of the heart S1, S2. Examination of lungs decreased breath sounds at the bases. Abdomen is soft, non-tender. Examination of the lower extremities shows chronic skin changes. Significant atrophy of the muscles is noted. MUFFLER HAND exam cannot be performed in detail. LABS: Show sodium 142, potassium 3.7, BUN 83, creatinine 2.8, hemoglobin 11.0 g/dL. ASSESSMENT: 1. Acute kidney injury associated with hypercalcemia and volume depletion. Renal function has not improved much. This may be her baseline as we have a previous creatinine of 2.3 in December of 2018. 2. Hypercalcemia with appropriately low PTH levels, most likely associated with immobilization and volume depletion and acute kidney injury, seems to be improving. 3. Gastrointestinal bleed, fairly stable. 4. Dementia. 5. Chronic kidney disease stage IV. Previous creatinine 2.3 December of 2018. 6. Mild metabolic acidosis, fairly stable. 7. Bacteremia with blood cultures growing micrococcus species, maintained on antibiotics. PLAN: Continue IV fluids, repeat labs in a.m. Avoid nephrotoxic agents. Patient is not a candidate for renal replacement therapy. MMODL / IJN: [id number] /
[2019-11-11 16:11] LABS: Basophils % (A) 0 %; Eosinophils % (A) 1 %; HCT 38.8 % (34.0-46.0); HGB 12.4 gm/dL (11.4-16.0); Hypochromasia Slight; Lymphocytes # (A) 0.4 k/uL (1.0-4.8); Lymphocytes % (A) 6 %; MCH 28.6 pg (25.0-35.0); MCV 89.4 fL (80.0-100.0); Mean Platelet Volume 9.5; Monocytes # (A) 0.2 k/uL (0-1.0); Monocytes % (A) 3 %; Neutrophils # (A) 6.1 k/uL (1.3-7.7); Neutrophils % (A) 90 %; RBC 4.34 m/uL (3.80-5.40); RDW 14.8 % (11.5-15.5); WBC 6.9 k/uL (3.8-10.6)
[2019-11-11 16:16] LABS: Calcium 11.1 mg/dL (8.4-10.2); Potassium 3.6 mmol/L (3.5-5.1)
[2019-11-11 16:17] LABS: Platelet Count 55 k/uL (150-450)
--- NOTE | 2019-11-11 17:06 | CDI ---
Documentation Clarification Form Date: 11/11/2019 04:36:10 PM From: Leela Ta RN, CCDS Admit Date: 11/09/2019 12:57:00 AM Patient Name: Lisandra Steward Visit Number: [id number] Discharge Date: ATTENTION: The Clinical Documentation Specialists (CDI) and [facility] Coding Staff appreciate your assistance in clarifying documentation. Please respond to the clarification below the line at the bottom and electronically sign. The CDI & [facility] Coding staff will review the response and follow-up if needed. Please note: Queries are made part of the Legal Health Record. If you have any questions, please contact the author of this message via ITS. Dr. Parsons Sheet Multiple pressure ulcer was documented in the H&P and subsequent progress notes, elements to accurately capture the ulcers is requested. History/Risk Factors: Motor sensory deficit, in bed x7 days (per ED report) Clinical Indicators: 79-year-old female to ED via EMS, called per family reportedly was weak and not getting out of bed for the past 7 days. EMS personnel report that the found patient in bed which was soiled with urine and stool. Patient is only able to give 1 or 2 word answers. General appearance in ED: obtunded. ED skin exam on admission on 11/07, notes multiple excoriation to the buttocks bilaterally. H/P and progress notes:" No petechiae, multiple pressure sores with excoriated skin in the lower back and rash"> Vital signs 11/07 at 21:14; 122/64 97 14 97.3 91 % RA; at 11/07 22:00 vital signs: 88/66 88 16 Location: Lower back, ED notes bilateral buttock. Wound description: Treatment: Assist with ADL skin precautions per protocol Monitor PO intake Elements for accurate and compliant documentation of an ulcer: *The location/laterality of the ulcer *Etiology (decubitus/pressure, diabetic, PVD) *Stage I-IV, Unstageable, Suspected Deep Tissue Injury (To the deepest stage) *If the ulcer was present at admission (POA) or occurred after admission In your professional opinion, can you please clarify the diagnosis, location, laterality and whether present on admission (POA): Stage 1 Pressure/Decubitus Ulcer (intact skin, non-blanching redness of local area) Stage 2 Pressure/Decubitus Ulcer (Partial thickness, loss of dermis, pink wound bed) Stage 3 Pressure/Decubitus Ulcer (Full thickness tissue loss) Stage 4 Pressure/Decubitus Ulcer (Full thickness tissue loss with exposed bone, tendon, or muscle. May have slough or eschar present) Unstageable Other condition, please specify Unable to determine Please indicate etiology of pressure ulcer (if known). (Last Revision: June 2017) Unable to determine MTDD
[2019-11-11] MEDS: ATORVASTATIN 20 MG TAB PO SCH (20:27)
--- NOTE | 2019-11-11 22:53 | P.CONS ---
History of Present Illness - Reason for Consult Consult date: 11/11/19 + Blood cultures Requesting physician: Issa E Sheet - Chief Complaint weakness and unable to get out of bed x 7 days - History of Present Illness Patient is a 71-year female brought to the ER at [facility] few days ago on November 07 after the EMS was called in for the patient being weak and not getting out of bed for the last 7 days patient also noticed to be less responsive and found in the bed was soiled with urine and stool patient was subsequently transferred to [facility] ER on arrival to the ER the patient has been afebrile and remains to be afebrile for the last few days patient has been here she did have a normal white count she did have elevated BUN and creatinine UA today shows moderate leukocyte esterase and a WBC patient CT of the brain was negative for any bleed chest x-ray masslike consolidation left upper lobe tumor is possible did have a abdominal ultrasound evidence of chronic medical renal disease bilateral hydronephrosis present patient did have blood cultures drawn on admission which came back positive that prompted this infectious disease consultation most information has been obtained from review the chart and talking nursing staff at the patient is currently nonverbal but when asked questions specifically he denied any chest pain or any active symptoms patient also noticed to have excoriation of her left gluteal area with some bleeding but no purulence or any foul-smelling drainage. Review of Systems Positive point has been mentioned in HPI complete review could not be obtained because of underlying mental status Past Medical History Past Medical History: Hyperlipidemia, Hypertension, Myocardial Infarction (AR), Pneumonia Last Myocardial Infarction Date:: 02/25/2012 History of Any Multi-Drug Resistant Organisms: None Reported Past Surgical History: Heart Catheterization With Stent, Tubal Ligation Past Anesthesia/Blood Transfusion Reactions: No Reported Reaction Date of Last Stent Placement:: 02/2012 Past Psychological History: No Psychological Hx Reported Smoking Status: Former smoker - Past Family History Mother Family Medical History: Cancer, Hypertension, Thyroid Disorder Son(s) Family Medical History: Cancer Medications and Allergies Home Medications Medication Instructions Recorded Confirmed Type Albuterol Inhaler [Ventolin Hfa 2 puff INHALATION RT-Q4H PRN 12/02/18 11/09/19 History Inhaler] Ascorbic Acid [Vitamin C] 250 mg PO BID 12/02/18 11/09/19 History Aspirin 325 mg PO DAILY 12/02/18 11/09/19 History Carvedilol [Coreg] 12.5 mg PO BID 12/02/18 11/09/19 History Cholecalciferol [Vitamin D3] 1,000 unit PO DAILY 12/02/18 11/09/19 History Ferrous Sulfate [Feosol] 325 mg PO BID 12/02/18 11/09/19 History Furosemide [Lasix] 20 mg PO DAILY 12/02/18 11/09/19 History Lisinopril [Prinivil] 20 mg PO BID 12/02/18 11/09/19 History Multivitamins, Thera [Multivitamin 1 tab PO DAILY 12/02/18 11/09/19 History (formulary)] Simvastatin [Zocor] 40 mg PO HS 11/09/19 11/09/19 History Allergies Allergy/AdvReac Type Severity Reaction Status Date / Time No Known Allergies Allergy Verified 11/09/19 10:04 Physical Exam Vitals: Vital Signs Temp Pulse Resp BP Pulse Ox 11/11/19 12:00 51 L 16 11/11/19 11:00 51 L 15 102/50 96 11/11/19 08:00 98 F 49 L 16 114/70 100 11/11/19 04:00 97.7 F 58 L 16 132/63 99 11/11/19 00:00 97.7 F 61 19 136/61 96 11/10/19 20:00 97.8 F 57 L 20 118/58 100 11/10/19 15:52 58 L 18 118/58 97 Intake and Output 11/11/19 11/11/19 11/11/19 06:59 14:59 22:59 Intake Total 120 Output Total 400 180 Balance -400 -60 Intake: Oral 120 Output: Urine 400 180 Other: Voiding Method Indwelling Catheter Indwelling Catheter # Bowel Movements 1 Weight 81 kg GENERAL DESCRIPTION: Elderly female lying in bed, no distress. No tachypnea or accessory muscle of respiration use. HEENT: Shows Pallor , no scleral icterus. Oral mucous membrane is dry. NECK: Trachea central, no thyromegaly. LUNGS: Unlabored breathing. Decreased breath sound at the base. No wheeze or crackle. HEART: S1, S2, regular rate and rhythm. ABDOMEN: Soft, no tenderness , guarding or rigidity EXTREMITIES: No edema of feet. SKIN: Significant excoriation of the left gluteal area superficial ulceration no significant redness or foul-smelling drainage. NEUROLOGICAL: The patient is lethargic but arousable and oriented to name/person Results CBC & Chem 7: 11/11/19 15:41 11/11/19 15:41 Labs: Microbiology - Last 24 Hours (Table) 11/08/19 22:20 Blood Culture Gram Stain - Final Blood Blood Culture - Final Micrococcus species 11/08/19 22:20 Blood Culture - Final Blood Assessment and Plan Assessment: 1-patient with a positive blood culture with gram-positive cocci has been finalized with micrococcus species likely representing skin contamination currently with no obvious focus for this positive blood culture 2-patient with right upper lobe consolidation most likely a question of aspiration pneumonia versus malignancy 3-mildly positive UA but unable to get any history from this patient to see any component of symptomatic UTI 4-left gluteal area excoriation but no definite cellulitis (1) Bacteremia Current Visit: Yes Status: Acute Code(s): R78.81 - BACTEREMIA SNOMED Code(s): 8900605 (2) Lung mass Current Visit: Yes Status: Acute Code(s): R91.8 - OTHER NONSPECIFIC ABNORMAL FINDING OF LUNG FIELD SNOMED Code(s): 791685801 (3) Skin excoriation Current Visit: Yes Status: Acute Code(s): T14.8XXA - OTHER INJURY OF UNSPECIFIED BODY REGION, INITIAL ENCOUNTER SNOMED Code(s): 662091661 Plan: 1-blood cultures will be repeated to document clearance of bacteremia [address] of the chest for the-right upper lobe mass versus consolidation 3-discontinue Rocephin 4-add Unasyn 1.5 g every 6 hours 5-calmoseptine lotion to the left gluteal area of excoriation and keep it off the pressure and dry We will follow on clinical condition and cultures to further adjust medication if needed Thank you for this consultation we will follow the patient along with you Time with Patient: Greater than 30
[2019-11-11] MEDS: AMPICILLIN-SULBACTAM 3 GM in SODIUM CHLORIDE 0.9% 100 ML IVPB SCH (23:10)
[2019-11-12] MEDS: CARVEDILOL 12.5 MG TAB PO SCH (06:31)
[2019-11-12 06:48] LABS: Basophils % (A) 0 %; Eosinophils # (A) 0.1 k/uL (0-0.7); Eosinophils % (A) 1 %; HCT 35.2 % (34.0-46.0); HGB 11.4 gm/dL (11.4-16.0); Lymphocytes # (A) 0.4 k/uL (1.0-4.8); Lymphocytes % (A) 7 %; MCH 28.8 pg (25.0-35.0); MCHC 32.5 g/dL (31.0-37.0); MCV 88.4 fL (80.0-100.0); Mean Platelet Volume 9.6; Monocytes # (A) 0.2 k/uL (0-1.0); Monocytes % (A) 4 %; Neutrophils # (A) 5.1 k/uL (1.3-7.7); Neutrophils % (A) 87 %; Platelet Count 49 k/uL (150-450); RBC 3.98 m/uL (3.80-5.40); RDW 14.9 % (11.5-15.5); WBC 5.8 k/uL (3.8-10.6)
[2019-11-12 07:02] LABS: Calcium 10.6 mg/dL (8.4-10.2); Potassium 3.2 mmol/L (3.5-5.1)
--- NOTE | 2019-11-12 08:24 | CT ---
EXAMINATION TYPE: CT chest wo con DATE OF EXAM: 11/12/2019 COMPARISON: Chest x-ray November 09, 2019. Prior chest CT February 16, 2012. HISTORY: abnormal chest x-ray ?mass CT DLP: 238 mGycm. Automated Exposure Control for Dose Reduction was Utilized. TECHNIQUE: CT scan of the thorax is performed without IV contrast. FINDINGS: Exam suboptimal inspiration unable to hold breath. LUNGS: There is background fairly moderate underlying emphysematous change. There are small tiny bila teral pleural effusions. There is bibasilar compressive and linear atelectasis just above the diaphra gms. There is additional nodular infiltrate and/or less likely nodules in the anterior medial aspect of the inferior left upper lobe near axial images 24 through 31. There is 1.0 cm calcified nodule or granuloma in the periphery of the left upper lobe seen best coronal image 36. Seen medial and superio r to this there is new anterior left apical mass or medial plateau corresponding to chest x-ray abnor mality measuring 5.9 x 6.7 cm transversely axial image 11 by roughly 5.6 cm craniocaudal dimension co macrina image 39. This is displacing the left subclavian artery superiorly. There is destruction of sig nificant portion of the anterior and lateral aspect of the left first rib. No definitive mediastinal invasion. MEDIASTINUM: Lack of IV contrast is noted to limit evaluation for mediastinal and especially hilar ad enopathy. There are persistent calcified left suprahilar lymph nodes near axial image 22 with more mac spicious masslike consolidation at this level suggesting likely left hilar/suprahilar adenopathy swapnil g the superior aspect of the left pulmonary artery. No cardiomegaly or pericardial effusion is seen . Severe three-vessel coronary artery calcification is present. OTHER: Numerous calcifications throughout the liver and spleen. Prominent liver and spleen remains pr esent. Finding consistent product of old granulomatous disease. Dependent density in gallbladder cons istent with small stones and/or gallbladder sludge. Osseous structures are demineralized with underly ing scoliosis. Cortical thinning and visualized portion of both kidneys. Moderate calcified plaque of the aorta with aneurysm of the infrarenal abdominal aorta up to 3.1 cm transversely axial image 69. IMPRESSION: 1. Moderate emphysematous change redemonstrated along with old granulomatous disease. New small to ti ny bilateral pleural effusions. New nodular infiltrate anterior inferior medial left upper lobe. 2. Confirmation of left apical mass or neoplasm anteriorly with chest wall and supraclavicular invasi on destroying portion of left first rib. Pancoast tumor. Likely left hilar adenopathy.
--- NOTE | 2019-11-12 09:08 | CDI ---
Documentation Clarification Form Date: 11/12/2019 08:02:27 AM From: Leela Ta RN, CCDS Admit Date: 11/09/2019 12:57:00 AM Patient Name: Lisandra Steward Visit Number: [id number] Discharge Date: ATTENTION: The Clinical Documentation Specialists (CDI) and [facility] Coding Staff appreciate your assistance in clarifying documentation. Please respond to the clarification below the line at the bottom and electronically sign. The CDI & [facility] Coding staff will review the response and follow-up if needed. Please note: Queries are made part of the Legal Health Record. If you have any questions, please contact the author of this message via ITS. Dr. Gen Fernandez The patient presented to ED on 11/07 via EMS after family reported not very responsive at home. Cardiology was consulted for abnormal troponins and further clarification is requested. History/Risk Factors: Myocardial Infarction (02/25/2012), Hypertension Clinical Indicators: 79-year-old female present to ED with weakness and had not gotten out of bed for the past 7 days per family. ED on admission patient denied chest pain and dyspnea. Cardiology evaluation on 11/08 has indicated an EKG on presentation showed a normal sinus rhythm, right bundle branch block pattern, with nonspecific ST-T wave changes. Blood pressure 105/80 with heart rate of 90, afebrile, 91% on room air. White blood cell count 12.5, hemoglobin 16.5, platelet count 105. Sodium 139, potassium 4.1, BUN 85, Creatinine 2.9. Plasma lactic acid up to 5.1. Troponin 1.6, 1.5. Positive UTI 11/08 cardiology assessment: Abnormality in troponin, could represent an acute coronary event. Treatment: Echocardiogram: revealed a hyperdynamic LV function greater than 70 % ASA 81 mg daily .9 Saline IV@ 75 mls/hr Lipitor 20 mg PO HS Coreg 12.5 mg PO bid In your professional opinion, can you please further clarify abnormality in troponin, could represent an acute coronary event? Acute AZ (specify type) Type 2 AZ (specify cause)X possible uti Acute AZ ruled out Other, please specify Unable to determine (Last Revision: December 2017) MTDD
[2019-11-12] MEDS: HEPARIN SODIUM,PORCINE 5,000 UNIT/ML 1 ML VIAL SQ SCH (10:01)
[2019-11-12] MEDS: SODIUM CHLORIDE 0.9% 1,000 ML IV SCH (10:01)
[2019-11-12] MEDS: FAMOTIDINE 20 MG TAB PO SCH (10:27)
[2019-11-12] MEDS: ASPIRIN 81 MG PO SCH (10:27)
[2019-11-12] MEDS: FOLIC ACID 1 MG TAB PO SCH (10:27)
[2019-11-12] MEDS ORDERED: SODIUM CHLORIDE 0.45% 1,000 ML IV SCH (10:30)
--- NOTE | 2019-11-12 10:31 | EEG ---
ELECTROENCEPHALOGRAM REPORT DATE OF SERVICE: 11/11/2019. PREAMBLE: This is a 79-year-old female admitted with altered mental status. This study is performed to evaluate for any epileptiform activity. EEG FINDINGS: A routine 21 channel awake digital EEG recording was accomplished utilizing the 10/20 international system. The background consists of a well-developed, poorly regulated, mixed frequencies of moderate amplitude delta and some theta activity. The background does not seem to be reactive to eye opening or closing. Photic driving response was not seen. Some generalized sharply controlled appearance was seen, which at times appears focally involving the left hemispheric region. However, these did not appear clearly epileptiform. Different stages of sleep are not seen. IMPRESSION: This is an abnormal EEG due to background slowing of moderate to severe degree. This is suggestive of generalized cerebral dysfunction, as can be seen with toxic metabolic encephalopathies or due to diffuse structural brain abnormality. Clinical correlation is recommended. There is intermittent, sharply contoured waves seen in a generalized distribution, which at times appears more focal involving the left hemispheric region. This does not appear clearly epileptiform; however, a followup study is recommended if clinically indicated. The EEG was technically limited due to significant myogenic activity seen in bitemporal regions. Suggest repeating a study when patient is more cooperative. MMODL / IJN: [id number] / [facility]
[2019-11-12] MEDS: AMPICILLIN-SULBACTAM 3 GM in SODIUM CHLORIDE 0.9% 100 ML IVPB SCH (12:30)
[2019-11-12 12:40] VITALS: BP 100/49; PULSE 52; RESP 16; TEMP 98.2
--- NOTE | 2019-11-12 13:13 | P.PN ---
Subjective 79 years old female with past medical history of hyperlipidemia, hypertension, coronary artery disease status post stent placement . Patient is poor historian and could not provide information which were obtained from the records and staff, as per records Through EMS patient was weak and not getting out of bed for about 7 days and she has been poorly RESPONSIVE AT HOME HAS FAMILY MEMBERS CALLED AMBULANCE. Patient was found salt in her urine and a stool, as per record she able to provide one or 2 word answers She needs Vitals are stable and patient is afebrile. Labs showed leukocytosis of 12.5k, hemoglobin 16.5, INR is 1.1, creatinine is elevated at 2.9, baseline is 2.3, calcium is elevated at 13.4, sodium and potassium are within normal limits, lactic acid is elevated at 3.9 and 5.1, liver enzymes AST and ALT are within normal limits, troponin is elevated at 1.6 and 1.5, TSH is within normal limits. Echocardiogram showing normal size of LV, moderate LVH, ejection fraction more than 70% [employer] evaluated the patient already on come and recommended history start aspirin and statin with consideration of hospice care patient already started on ceftriaxone and heparin drip and normal/500 mL per hour 11/10/2019 Patient this morning still with altered mental status, she does not open eyes spontaneously, she is not answering questions and commands, painful stimuli caused a response but no withdrawal. Patient extended family, nephews came yesterday and Dr. mcgill, stating that patient was taking care of herself and she lives with her son, last week she was able to walk to the restroom mainly. She still have contractures in her left right advanced and upper extremities, she is on nasal cannula at 2 L, Coleman catheter is in place with some yellow urine in the back. Her vitals are stable, patient is afebrile. hemodilution once all cell lines are lower with wbc of 5.6k, hemoglobin 11, platelet 56, alk phos and normal, creatinine slightly worse at 2.8, lactic acid came back to normal at 1.3. Calcium is 11.3, calcium is a due to immobility, dehydration and possible bone disease, hormone and vitamin D as patient is f ollowed closely by nephrology and cardiology team. She is on heparin drip and Cardizem drip, although the vessel there. Start her on subcutaneous heparin. She is also on Rocephin 1 g daily, and normal saline at 75 mL/h 11/11/2019 Patient still has altered mental status however she looks better than yesterday where she was almost obtunded, currently she opens eyes to verbal and tactile stimuli, she can tell me her last name as " berden" and thereafter she answers "OK" for every answer, she is not in pain, she could not provide more information. Neurologist recommended MRI and EEG which are still pending, discussed with staff for nephrology follow-up. No fever, Vitas looks stable. Labs from today are still pending. Blood culture came back positive for gram positive cocci. Currently she remains on ceftriaxone and normal saline 75 mL/h, Cardizem drip was stopped. We are going to consult infectious disease 11/12/2019 patient is barely responsive to painful stabilized. Patient's a serum calcium did come down. Patient is found to have a big massin the left apex consistent with Pancoast tumor. Unless otherwise proven this is cancer. I had a lengthy discussion with the son today patient did not respond in spite of aggressive therapy for hypercalcemia Patientpatient did not respond to the therapy and in reality patient will not be a good candidate for further further chemotherapy testing her age and her overall clinical condition. After lengthy discussion with the family I consulted hospice. Family is agreeable for hospice hospice evaluated the patient all the medications will be discontinued and the patient will be initiated on comfort medications only. review of systems: Unable to assess due to her clinical condition All inpatient medications were reviewed and appropriate changes in these medications as dictated in the interval history and assessment and plan. Objective - Vital Signs Vital signs: Vital Signs Temp 98.2 F 11/12/19 12:40 Pulse 52 L 11/12/19 12:40 Resp 16 11/12/19 12:40 BP 100/49 11/12/19 12:40 Pulse Ox 99 11/12/19 12:40 Intake & Output 11/11/19 11/12/19 11/12/19 18:59 06:59 18:59 Intake Total 610 700 Output Total 280 200 Balance 330 500 Weight 50.5 kg Intake: Intake, IV Titration 700 Amount Ampicillin-Sulbactam 3 gm 100 In Sodium Chloride 0.9% 100 ml @ 200 mls/hr IVPB Q12H [facility] Rx#:[id number] Sodium Chloride 0.9% 1, 600 000 ml @ 75 mls/hr IV . [id number] [facility] Rx#:[id number] Oral 610 Output: Urine 280 200 Other: Voiding Method Indwelling Catheter Indwelling Catheter Indwelling Catheter - Exam -GENERAL: patient is barely responsive to pain. Patient looks emaciated HEENT: Pupils are round and equally reacting to light. EOMI. No scleral icterus. No conjunctival pallor. Normocephalic, atraumatic. No pharyngeal erythema. No thyromegaly. CARDIOVASCULAR: S1 and S2 present. No murmurs, rubs, or gallops. PULMONARY: Chest is clear to auscultation, no wheezing or crackles. ABDOMEN: Soft, nontender, nondistended, normoactive bowel sounds. No palpable organomegaly. MUSCULOSKELETAL: No joint swelling or deformity. -EXTREMITIES: No cyanosis, clubbing, or pedal edema. Severely longer thickened toenails. Also patient has contracted upper extremity and also some degree of the lower extremity NEUROLOGICAL:unable to assess -SKIN: No rashes. No petechiae, multiple pressure sores with excoriated skin in the lower back and rashpatient does have stage II decubitus ulcers present on admission - Labs CBC & Chem 7: 11/12/19 06:29 11/12/19 06:29 Labs: Abnormal Lab Results - Last 24 Hours (Table) 11/11/19 11/11/19 11/12/19 Range/Units 15:41 15:41 06:29 Plt Count 55 L 49 L (150-450) k/uL Lymphocytes # 0.4 L 0.4 L (1.0-4.8) k/uL Sodium 148 H (137-145) mmol/L Potassium (3.5-5.1) mmol/L Chloride 121 H (98-107) mmol/L Carbon Dioxide 18 L (22-30) mmol/L BUN 80 H (7-17) mg/dL Creatinine 2.57 H (0.52-1.04) mg/dL Glucose (74-99) mg/dL Calcium 11.1 H (8.4-10.2) mg/dL 11/12/19 Range/Units 06:29 Plt Count (150-450) k/uL Lymphocytes # (1.0-4.8) k/uL Sodium 149 H (137-145) mmol/L Potassium 3.2 L (3.5-5.1) mmol/L Chloride 127 H (98-107) mmol/L Carbon Dioxide 17 L (22-30) mmol/L BUN 87 H (7-17) mg/dL Creatinine 2.64 H (0.52-1.04) mg/dL Glucose 103 H (74-99) mg/dL Calcium 10.6 H (8.4-10.2) mg/dL Microbiology - Last 24 Hours (Table) 11/08/19 22:20 Blood Culture Gram Stain - Final Blood Blood Culture - Final Micrococcus species Assessment and Plan Plan: -altered mental status metabolic encephalopathy secondary to hypercalcemia neck although metastatic disease to the brain cannot be ruled out -Possible lung cancer Pancoast tumor not a candidate for further workup and hospice was consulted as mentioned above -bacteremia micrococcus: Antibiotics are being discontinued because of the head stat is being switched to hospice -upon evaluation secondary to most probably renal failure -Acute on chronic kidney disease acute renal failure secondary to hypercalcemia chronic kidney disease stage unknown at this time -Stage II decubitus ulcer -Hypertension next and-hyperlipidemia -Coronary artery disease
--- NOTE | 2019-11-12 14:07 | PN ---
PROGRESS NOTE DATE OF SERVICE: 11/12/2019 REASON FOR FOLLOWUP: 1. Right upper lobe pneumonia. 2. UTI and left gluteal wound. INTERVAL HISTORY: The patient was seen on rounds this morning. The patient has been afebrile. She is breathing comfortably. No respiratory distresss. No abdominal pain, no diarrhea reported. The patient was and did not provided any history. PHYSICAL EXAMINATION: Blood pressure 149/52, temperature 98.2, 99% on room air. General description is an elderly female lying in bed in no distress. RESPIRATORY SYSTEM: Unlabored breathing, clear to auscultation. HEART: S1, S2. Regular rate and rhythm. ABDOMEN: Soft, no tenderness. LABS: Hemoglobin 11.4, white count of 5.8, creatinine is 2.64. Blood culture . A CT chest was ordered early this morning did show a possible Pancoast tumor. IMPRESSION AND PLAN: 1. Patient admitted to the hospital with weakness, lethargy in this patient who was noticed to be in bed. with multiple comorbidity including possible UTI, now with question of pneumonia has been confirmed, possible tumor with local invasion and the patient is currently covered with Unasyn. 2. Positive blood culture, likely skin contamination, no need for further workup for the same. 3. Left gluteal wound open. Continue with lotion. SHAILESHL / IJN: [id number] /
--- NOTE | 2019-11-12 19:25 | PN ---
PROGRESS NOTE Patient is seen for followup for chronic kidney disease and acute kidney injury. She was found to have a left apical tumor consistent with Pancoast tumor. Patient is resting comfortably. She is barely arousable. No chest pains. She is not in any acute distress. Blood pressure 111/53, heart rate 58 per minute. She is afebrile. EXAMINATION OF THE HEART: S1 and S2. EXAMINATION OF LUNGS: Bilateral breath sounds are heard. ABDOMEN: Soft, non-tender. Examination of lower extremities shows chronic skin changes. SAND SLINGER exam is grossly intact. Labs show sodium 149, potassium 3.2, chloride 127, CO2 17, BUN 87, creatinine 2.64. ASSESSMENT: 1. Chronic kidney disease, stage IV to V. 2. Acute kidney injury secondary to hypercalcemia. 3. Hypernatremia associated with free water deficit. 4. Mild metabolic acidosis. PLAN: Change to hypotonic IV fluid. Overall prognosis is guarded, especially given the underlying malignancy, which has most likely caused the hypercalcemia as well. MMODL / IJN: [id number] /
--- NOTE | 2019-11-13 15:53 | P.DS ---
Providers Date of admission: 11/09/19 00:57 Attending physician: Purvi Rausch Consults: 11/09/19 00:57 Consult Physician Stat Consulting Provider: Gen Fernandez Consult Reason/Comments: NSTEMI Do you want consulting provider notified?: Already Contacted 11/09/19 01:09 Consult Physician Routine Consulting Provider: Cassidy Granger Consult Reason/Comments: Acute kidney injury Do you want consulting provider notified?: Yes 11/10/19 07:17 Consult Physician Urgent Consulting Provider: Naveed Mcgraw Consult Reason/Comments: encephalopathy Do you want consulting provider notified?: Yes 11/11/19 08:03 Consult Physician Urgent Consulting Provider: Heather Lopez Consult Reason/Comments: Positive blood culture Do you want consulting provider notified?: Yes Primary care physician: Nelda Jovel Hospital Course: Patient was discharged to inpatient hospice Plan - Discharge Summary Discharge Rx Participant: No New Discharge Prescriptions: No Action Lisinopril [Prinivil] 20 mg PO BID Aspirin 325 mg PO DAILY Furosemide [Lasix] 20 mg PO DAILY Ferrous Sulfate [Feosol] 325 mg PO BID Carvedilol [Coreg] 12.5 mg PO BID Albuterol Inhaler [Ventolin Hfa Inhaler] 2 puff INHALATION RT-Q4H PRN PRN Reason: Shortness Of Breath Or Wheezing Multivitamins, Thera [Multivitamin (formulary)] 1 tab PO DAILY Cholecalciferol [Vitamin D3] 1,000 unit PO DAILY Ascorbic Acid [Vitamin C] 250 mg PO BID Simvastatin [Zocor] 40 mg PO HS Discharge Medication List Albuterol Inhaler [Ventolin Hfa Inhaler] 2 puff INHALATION RT-Q4H PRN 12/02/18 [History] Ascorbic Acid [Vitamin C] 250 mg PO BID 12/02/18 [History] Aspirin 325 mg PO DAILY 12/02/18 [History] Carvedilol [Coreg] 12.5 mg PO BID 12/02/18 [History] Cholecalciferol [Vitamin D3] 1,000 unit PO DAILY 12/02/18 [History] Ferrous Sulfate [Feosol] 325 mg PO BID 12/02/18 [History] Furosemide [Lasix] 20 mg PO DAILY 12/02/18 [History] Lisinopril [Prinivil] 20 mg PO BID 12/02/18 [History] Multivitamins, Thera [Multivitamin (formulary)] 1 tab PO DAILY 12/02/18 [History] Simvastatin [Zocor] 40 mg PO HS 11/09/19 [History] Follow up Appointment(s)/Referral(s): Nelda Jovel III, MD [Primary Care Provider] - 1-2 days Discharge Disposition: DC/TRNS IP HOSP W/[facility] IP READ
== END 2019-11-12 12:46 | disposition hospice, inpatient (51) | DRG 682 ==
LOC: EC 21:11 → 3SCARD 11-09 00:57
PROVIDERS: ADMIT Hospitalist; ATTEND Hospitalist
PROC: 02HV33Z Insertion of Infusion Device into Superior Vena Cava, Percutaneous Approach (ICD-10-PCS; principal; 2019-11-09 14:50)
DX: N17.0 Acute kidney failure with tubular necrosis (principal); I21.A1 Myocardial infarction type 2; G93.41 Metabolic encephalopathy; J18.9 Pneumonia, unspecified organism; C34.10 Malignant neoplasm of upper lobe, unspecified bronchus or lung; E87.0 Hyperosmolality and hypernatremia; E87.2 Acidosis; I12.0 Hypertensive chronic kidney disease with stage 5 chronic kidney disease or end stage renal disease; K92.2 Gastrointestinal hemorrhage, unspecified; N39.0 Urinary tract infection, site not specified; R47.01 Aphasia; N18.5 Chronic kidney disease, stage 5; L89.92 Pressure ulcer of unspecified site, stage 2; F03.90 Unspecified dementia, unspecified severity, without behavioral disturbance, psychotic disturbance, mood disturbance, and anxiety; E53.8 Deficiency of other specified B group vitamins; E78.5 Hyperlipidemia, unspecified; E83.52 Hypercalcemia; E86.0 Dehydration; I25.10 Atherosclerotic heart disease of native coronary artery without angina pectoris; I25.2 Old myocardial infarction; I08.3 Combined rheumatic disorders of mitral, aortic and tricuspid valves; M19.90 Unspecified osteoarthritis, unspecified site; I45.10 Unspecified right bundle-branch block; I87.8 Other specified disorders of veins; I48.91 Unspecified atrial fibrillation; M06.9 Rheumatoid arthritis, unspecified; E86.9 Volume depletion, unspecified; T14.8XXA Other injury of unspecified body region, initial encounter; Z66 Do not resuscitate; Z79.02 Long term (current) use of antithrombotics/antiplatelets; Z79.82 Long term (current) use of aspirin; Z79.899 Other long term (current) drug therapy; Z95.5 Presence of coronary angioplasty implant and graft; Z87.891 Personal history of nicotine dependence; Z87.01 Personal history of pneumonia (recurrent); Z98.51 Tubal ligation status; Z80.9 Family history of malignant neoplasm, unspecified; Z83.49 Family history of other endocrine, nutritional and metabolic diseases
CPT/HCPCS: 36415; 36573; 51702; 70450; 71045; 71250; 76770; 80048; 80053; 81001; 82272; 82306; 82550; 82553; 82607; 82652; 82728; 82746; 83540; 83550; 83605; 83735; 83970; 84100; 84443; 84484; 85025; 85610; 85730; 87040; 93005; 93306; 93880; 95819; 96361; 96365; 96375; 99285

== ENCOUNTER 2019-11-12 12:55 | Inpatient (IN) | payer MEDICAID ==
[2019-11-12] MEDS ORDERED: ONDANSETRON 4 MG/2 ML VIAL IVP PRN (13:38)
[2019-11-12] MEDS ORDERED: LORazepam 2 MG/ML INJ IV PRN (13:38)
[2019-11-12] MEDS ORDERED: ATROPINE OPHTH SOLN 1% 5ML BTL SUBLINGUAL PRN (13:38)
[2019-11-12] MEDS ORDERED: ACETAMINOPHEN SUPPOSITORY 650 MG SUPP RECTAL PRN (13:38)
[2019-11-12] MEDS ORDERED: BISACODYL 10 MG SUPP RECTAL PRN (13:41)
[2019-11-12] MEDS: SCOPOLAMINE 1.5MG/72HR PATCH TRANSDERM SCH (15:33)
[2019-11-12] MEDS: MORPHINE SULFATE 2 MG/ML SYRINGE IV PRN (18:02)
[2019-11-13] MEDS: MORPHINE SULFATE 2 MG/ML SYRINGE IV PRN ×3 (02:01→23:33)
[2019-11-13 12:34] VITALS: BMI 18.5
[2019-11-14] MEDS: MORPHINE SULFATE 2 MG/ML SYRINGE IV PRN ×3 (04:24→17:27)
--- NOTE | 2019-11-14 15:57 | P.PN ---
Subjective 59-year-old the female admitted for hypercalcemia milligram evaluated patient was attended barely responsive found to have a Pancoast tumor considering her age patient is not a good candidate for any further intervention workup or chemotherapy and unless otherwise proven patient does have metastatic lung cancer after discussion with the family decision was made hospice is the best level of care patient was subsequently made hospice patient is presently in the hospital service. Objective - Vital Signs Vital signs: Intake & Output 11/13/19 11/14/19 11/14/19 18:59 06:59 18:59 Intake Total 0 0 Output Total 300 100 Balance -300 0 -100 Weight 50.5 kg Intake: Oral 0 0 Output: Urine 300 100 Other: Voiding Method Indwelling Catheter Indwelling Catheter Indwelling Catheter - Exam PHYSICAL EXAMINATION: GENERAL: patient is barely arousable comfortable CARDIOVASCULAR: S1 and S2 present. No murmurs, rubs, or gallops. PULMONARY: diffuse bilateral rhonchi ABDOMEN: Soft, NEUROLOGICAL: as mentioned above SKIN: No rashes. Assessment and Plan Plan: Assessment and Plan Plan: Pancoast tumor possible metastatic lung cancer Hypercalcemia -bacteremia micrococcus: -acute renal failure possible chronic kidney disease -Stage II decubitus ulcer -Hypertension hyperlipidemia -Coronary artery disease presently under hospice care continue with hospice measures patient is comfortable.
[2019-11-15] MEDS: MORPHINE SULFATE 2 MG/ML SYRINGE IV PRN ×2 (00:03→04:43)
[2019-11-15] MEDS: SCOPOLAMINE 1.5MG/72HR PATCH TRANSDERM SCH (12:55)
--- NOTE | 2019-11-15 13:24 | P.PN ---
Subjective 59-year-old the female admitted for hypercalcemia milligram evaluated patient was attended barely responsive found to have a Pancoast tumor considering her age patient is not a good candidate for any further intervention workup or chemotherapy and unless otherwise proven patient does have metastatic lung cancer after discussion with the family decision was made hospice is the best level of care patient was subsequently made hospice patient is presently in the hospital service. 11/15/2019 No significant change compared to yesterday Objective - Vital Signs Vital signs: Intake & Output 11/14/19 11/15/19 11/15/19 18:59 06:59 18:59 Intake Total 0 Output Total 100 250 Balance -100 -250 Intake: Oral 0 Output: Urine 100 250 Other: Voiding Method Indwelling Catheter Indwelling Catheter Indwelling Catheter - Exam PHYSICAL EXAMINATION: GENERAL: patient is barely arousable comfortable CARDIOVASCULAR: S1 and S2 present. No murmurs, rubs, or gallops. PULMONARY: diffuse bilateral rhonchi ABDOMEN: Soft, NEUROLOGICAL: as mentioned above SKIN: No rashes. Assessment and Plan Plan: Assessment and Plan Plan: Pancoast tumor possible metastatic lung cancer Hypercalcemia -bacteremia micrococcus: -acute renal failure possible chronic kidney disease -Stage II decubitus ulcer -Hypertension hyperlipidemia -Coronary artery disease presently under hospice care continue with hospice measures patient is comfortable.
--- NOTE | 2019-11-16 15:12 | P.HPIM ---
History of Present Illness H&P Date: 11/13/19 Chief Complaint: Pancoast tumor, hypercalcemia 59-year-old the female admitted for hypercalcemia. 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 Review of Systems Unable to obtain as patient is barely responsive Past Medical History Past Medical History: Cancer, Hyperlipidemia, Hypertension, Myocardial Infarction (VT), Pneumonia Last Myocardial Infarction Date:: 02/25/2012 History of Any Multi-Drug Resistant Organisms: None Reported Past Surgical History: Heart Catheterization With Stent, Tubal Ligation Past Anesthesia/Blood Transfusion Reactions: No Reported Reaction Date of Last Stent Placement:: 02/2012 Past Psychological History: No Psychological Hx Reported Smoking Status: Former smoker Past Alcohol Use History: None Reported Past Drug Use History: None Reported - Past Family History Mother Family Medical History: Cancer, Hypertension, Thyroid Disorder Son(s) Family Medical History: No Reported History, Cancer Medications and Allergies Home Medications Medication Instructions Recorded Confirmed Type Albuterol Inhaler [Ventolin Hfa 2 puff INHALATION RT-Q4H PRN 12/02/18 11/12/19 History Inhaler] Ascorbic Acid [Vitamin C] 250 mg PO BID 12/02/18 11/12/19 History Aspirin 325 mg PO DAILY 12/02/18 11/12/19 History Carvedilol [Coreg] 12.5 mg PO BID 12/02/18 11/12/19 History Cholecalciferol [Vitamin D3] 1,000 unit PO DAILY 12/02/18 11/12/19 History Ferrous Sulfate [Feosol] 325 mg PO BID 12/02/18 11/12/19 History Furosemide [Lasix] 20 mg PO DAILY 12/02/18 11/12/19 History Lisinopril [Prinivil] 20 mg PO BID 12/02/18 11/12/19 History Multivitamins, Thera [Multivitamin 1 tab PO DAILY 12/02/18 11/12/19 History (formulary)] Simvastatin [Zocor] 40 mg PO HS 11/09/19 11/12/19 History Allergies Allergy/AdvReac Type Severity Reaction Status Date / Time No Known Allergies Allergy Verified 11/12/19 14:44 Physical Exam Vitals: Intake and Output 11/16/19 11/16/19 11/16/19 06:59 14:59 22:59 Intake Total 0 0 Output Total 345 Balance 0 -345 Intake: Oral 0 0 Output: Urine 345 Other: Voiding Method Indwelling Catheter GENERAL: patient is barely arousable comfortable CARDIOVASCULAR: S1 and S2 present. No murmurs, rubs, or gallops. PULMONARY: diffuse bilateral rhonchi ABDOMEN: Soft, NEUROLOGICAL: as mentioned above SKIN: No rashes. 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
--- NOTE | 2019-11-16 15:15 | P.PN ---
Subjective Progress Note Date: 11/16/19 Principal diagnosis: This is a 79-year-old female was recently admitted with Pancoast tumor possible metastatic lung cancer and is currently on hospice care only. [facility] following. No acute changes overnight. Case management and social work awaiting to speak with [facility] in regards to possible hospice house or other options. Will continue to follow along closely. Objective - Vital Signs Vital signs: Intake & Output 11/15/19 11/16/19 11/16/19 18:59 06:59 18:59 Intake Total 0 0 Output Total 200 345 Balance -200 0 -345 Intake: Oral 0 0 Output: Urine 200 345 Other: Voiding Method Indwelling Catheter Indwelling Catheter - Exam GENERAL: patient is barely arousable comfortable CARDIOVASCULAR: S1 and S2 present. No murmurs, rubs, or gallops. PULMONARY: diffuse bilateral rhonchi ABDOMEN: Soft, NEUROLOGICAL: as mentioned above SKIN: No rashes. Assessment and Plan Assessment: -Pancoast tumor possible metastatic lung cancer -Hypercalcemia -bacteremia micrococcus: -acute renal failure possible chronic kidney disease -Stage II decubitus ulcer -Hypertension -hyperlipidemia -Coronary artery disease Plan: Patient to continue with hospice care and comfort measures only. Case management and social work working with [facility] for possible hospice house or other options.
[2019-11-17] MEDS: MORPHINE SULFATE 2 MG/ML SYRINGE IV PRN (13:00)
--- NOTE | 2019-11-17 15:53 | P.PN ---
Subjective Progress Note Date: 11/17/19 Principal diagnosis: This is a 79-year-old female was recently admitted with Pancoast tumor possible metastatic lung cancer and is currently on hospice care only. [facility] following. No acute changes overnight. Case management and social work awaiting to speak with [facility] in regards to possible hospice house or other options. Will continue to follow along closely. 11/17/2019 Patient remains on hospice with no acute overnight issues. Patient continues to be unresponsive. [facility] following. There is discussion about a possible guardianship court hearing for Saturday as there are currently no safe places for discharge at this time. Will continue to monitor closely. Patient is maintained on morphine IV push as needed and also Ativan as needed. Comfort measures only. Objective - Vital Signs Vital signs: Intake & Output 11/16/19 11/17/19 11/17/19 18:59 06:59 18:59 Intake Total 0 0 0 Output Total 390 100 Balance -390 0 -100 Intake: Oral 0 0 0 Output: Urine 390 100 Other: Voiding Method Indwelling Catheter Indwelling Catheter Indwelling Catheter - Exam GENERAL: patient is unresponsive and not arousable, appears comfortable CARDIOVASCULAR: S1 and S2 present. No murmurs, rubs, or gallops. PULMONARY: diffuse bilateral rhonchi, increased respirations noted ABDOMEN: Soft NEUROLOGICAL: as mentioned above SKIN: No rashes. Assessment and Plan Assessment: -Pancoast tumor possible metastatic lung cancer -Hypercalcemia -bacteremia micrococcus -acute renal failure possible chronic kidney disease -Stage II decubitus ulcer -Hypertension -hyperlipidemia -Coronary artery disease Plan: Patient to continue with hospice care and comfort measures only. Case management and social work working with [facility] for possible hospice house or other options. Will continue to monitor closely.
--- NOTE | 2019-11-18 08:53 | P.DS ---
Providers Date of admission: 11/12/19 13:00 Expected date of discharge: 11/18/19 Attending physician: Elder Mercado Primary care physician: Nelda Jovel [facility] Course: Final diagnosis -Pancoast tumor possible metastatic lung cancer -Hypercalcemia -bacteremia micrococcus -acute renal failure possible chronic kidney disease -Stage II decubitus ulcer -Hypertension -hyperlipidemia -Coronary artery disease Discharge disposition Patient has . Please refer to nursing notes for time of . Preliminary cause of lung cancer. History of present illness This is a 79-year-old female who was recently admitted with Pancoast tumor with possible metastatic lung cancer and was placed on hospice care with comfort care only. [facility] following. Patient has this morning. Patient Condition at Discharge: Serious Plan - Discharge Summary New Discharge Prescriptions: Discontinued Lisinopril [Prinivil] 20 mg PO BID Aspirin 325 mg PO DAILY Furosemide [Lasix] 20 mg PO DAILY Ferrous Sulfate [Feosol] 325 mg PO BID Carvedilol [Coreg] 12.5 mg PO BID Albuterol Inhaler [Ventolin Hfa Inhaler] 2 puff INHALATION RT-Q4H PRN PRN Reason: Shortness Of Breath Or Wheezing Multivitamins, Thera [Multivitamin (formulary)] 1 tab PO DAILY Cholecalciferol [Vitamin D3] 1,000 unit PO DAILY Ascorbic Acid [Vitamin C] 250 mg PO BID Simvastatin [Zocor] 40 mg PO HS Discharge Disposition: - Preliminary Cause of Preliminary Cause of : Lung cancer
== END 2019-11-18 09:00 | disposition expired | DRG 951 ==
LOC: 3SCARD 13:00 → 5NMEDONC 18:15
PROVIDERS: ADMIT Internal Medicine; ATTEND Internal Medicine
DX: Z51.5 Encounter for palliative care (principal); C34.10 Malignant neoplasm of upper lobe, unspecified bronchus or lung; N17.9 Acute kidney failure, unspecified; R78.81 Bacteremia; E78.5 Hyperlipidemia, unspecified; E83.52 Hypercalcemia; I25.10 Atherosclerotic heart disease of native coronary artery without angina pectoris; I25.2 Old myocardial infarction; L89.92 Pressure ulcer of unspecified site, stage 2; Z79.82 Long term (current) use of aspirin; Z79.899 Other long term (current) drug therapy; Z82.49 Family history of ischemic heart disease and other diseases of the circulatory system; Z85.118 Personal history of other malignant neoplasm of bronchus and lung; Z87.891 Personal history of nicotine dependence; I12.9 Hypertensive chronic kidney disease with stage 1 through stage 4 chronic kidney disease, or unspecified chronic kidney disease; N18.9 Chronic kidney disease, unspecified